=== PATIENT | male | born 1955 | race Caucasian/White ===

== ENCOUNTER 2020-11-26 12:45 | Outpatient (REF) | payer OTHER, SELFPAY ==
[2020-11-26 15:06] LABS: Alanine Aminotransferase 41 U/L (0-40); Albumin Level 4.7 g/dL (3.5-5.0); Alkaline Phosphatase 76 U/L (39-117); Anion Gap 13 (12-20); Aspartate Amino Transferase 31 U/L (5-37); Bilirubin Total 0.8 mg/dL (0.0-1.0); Blood Urea Nitrogen 16 mg/dL (9-16); Calcium 9.3 mg/dL (8.4-10.2); Carbon Dioxide 30 mmol/L (22-29); Chloride 97 mmol/L (96-108); Cholesterol 217 mg/dL; Estimated Glomerular Filt Rate > 60; Glucose Fasting 94 mg/dL (60-99); HDL Cholesterol 50 mg/dL; LDL Cholesterol Calculated 133 mg/dl; Potassium 3.4 mmol/L (3.3-5.1); Sodium 137 mmol/L (135-145); Total Protein 7.9 g/dL (6.5-8.0); Triglycerides 170 mg/dL
== END 2020-11-26 12:46 | disposition home or self-care (01) ==
LOC: HO.HMGCLDS 12:45
PROVIDERS: PCP Internal Medicine; Visit Provider Internal Medicine
DX: E78.9 Disorder of lipoprotein metabolism, unspecified (principal); I10 Essential (primary) hypertension
CPT/HCPCS: 36415; 80048; 80053; 80061

== ENCOUNTER 2021-06-08 09:43 | Outpatient (REF) | payer OTHER, SELFPAY ==
[2021-06-08 11:28] LABS: MANUAL DIFF FLAG NO
[2021-06-08 11:41] LABS: Basophils Percent Auto 0.4 % (0-2); Eosinophils Absolute Auto 0.3 X10*3/uL (0.0-0.4); Eosinophils Percent Auto 3.8 % (0-4); Hemoglobin 15.4 g/dl (14.0-18.0); Imm Gran Abs Auto 0.02 X10*3/uL (0.00-0.03); Imm Gran Pct Auto 0.3 % (0.0-0.4); Lymphocytes Absolute Auto 2.3 X10*3/uL (1.2-4.9); Mean Corpuscular Hemoglobin 31.5 pg (27.0-33.0); Monocytes Absolute Auto 0.7 X10*3/uL (0.1-1.2); Monocytes Percent Auto 8.8 % (2-11); Neutrophils Absolute Auto 4.6 X10*3/uL (2.0-8.3); Neutrophils Percent Auto 57.7 % (45-73); Platelet Count 206 X10*3/uL (160-400); Red Blood Count 4.89 X10*6/uL (4.60-5.80); Red Cell Distribution Width 12.4 % (11.0-16.0); White Blood Count 7.9 X10*3/uL (4.8-10.8)
[2021-06-08 12:23] LABS: Alanine Aminotransferase 45 U/L (0-40); Albumin Level 4.6 g/dL (3.5-5.0); Alkaline Phosphatase 63 U/L (39-117); Anion Gap 14 (12-20); Aspartate Amino Transferase 38 U/L (5-37); Bilirubin Total 0.9 mg/dL (0.0-1.0); Blood Urea Nitrogen 15 mg/dL (9-16); Calcium 9.5 mg/dL (8.4-10.2); Carbon Dioxide 25 mmol/L (22-29); Chloride 103 mmol/L (96-108); Cholesterol 180 mg/dL; Estimated Glomerular Filt Rate > 60; Glucose Fasting 114 mg/dL (60-99); HDL Cholesterol 46 mg/dL; LDL Cholesterol Calculated 107 mg/dl; Potassium 3.4 mmol/L (3.3-5.1); Sodium 139 mmol/L (135-145); Total Protein 7.5 g/dL (6.5-8.0); Triglycerides 138 mg/dL
== END 2021-06-08 09:44 | disposition home or self-care (01) ==
LOC: HO.HMGCLDS 09:43
PROVIDERS: PCP Internal Medicine; Visit Provider Internal Medicine
DX: Z00.01 Encounter for general adult medical examination with abnormal findings (principal); E78.9 Disorder of lipoprotein metabolism, unspecified; I10 Essential (primary) hypertension; Z72.0 Tobacco use
CPT/HCPCS: 36415; 80053; 80061; 85025

== ENCOUNTER 2021-10-25 09:14 | Outpatient (REF) | payer OTHER, SELFPAY ==
[2021-10-25 12:01] LABS: Alanine Aminotransferase 51 U/L (0-40); Albumin Level 4.7 g/dL (3.5-5.0); Alkaline Phosphatase 68 U/L (39-117); Anion Gap 12 (12-20); Aspartate Amino Transferase 35 U/L (5-37); Bilirubin Total 0.7 mg/dL (0.0-1.0); Blood Urea Nitrogen 18 mg/dL (9-16); Calcium 9.8 mg/dL (8.4-10.2); Carbon Dioxide 34 mmol/L (22-29); Chloride 97 mmol/L (96-108); Estimated Glomerular Filt Rate > 60; Glucose Random 145 mg/dL (60-115); Potassium 3.3 mmol/L (3.3-5.1); Sodium 140 mmol/L (135-145); Total Protein 7.8 g/dL (6.5-8.0)
[2021-10-25 12:36] LABS: Estimated Average Glucose 163 mg/dL; Hemoglobin A1c % 7.3 %
== END 2021-10-25 09:15 | disposition home or self-care (01) ==
LOC: HO.HMGCLDS 09:14
PROVIDERS: PCP Internal Medicine; Visit Provider Internal Medicine
DX: I10 Essential (primary) hypertension (principal); E78.9 Disorder of lipoprotein metabolism, unspecified; R79.89 Other specified abnormal findings of blood chemistry; R73.01 Impaired fasting glucose; Z72.0 Tobacco use
CPT/HCPCS: 36415; 80053; 83036

== ENCOUNTER 2022-03-01 09:11 | Outpatient (REF) | payer OTHER, SELFPAY ==
[2022-03-01 11:49] LABS: Estimated Average Glucose 151 mg/dL; Hemoglobin A1c % 6.9 %
[2022-03-01 11:57] LABS: Alanine Aminotransferase 65 U/L (0-40); Albumin Level 4.6 g/dL (3.5-5.0); Alkaline Phosphatase 78 U/L (39-117); Anion Gap 12 (12-20); Aspartate Amino Transferase 48 U/L (5-37); Bilirubin Total 0.5 mg/dL (0.0-1.0); Blood Urea Nitrogen 18 mg/dL (9-16); Calcium 9.2 mg/dL (8.4-10.2); Carbon Dioxide 28 mmol/L (22-29); Chloride 100 mmol/L (96-108); Estimated Glomerular Filt Rate > 60; Glucose Random 183 mg/dL (60-115); Potassium 3.3 mmol/L (3.3-5.1); Sodium 137 mmol/L (135-145); Total Protein 7.4 g/dL (6.5-8.0)
== END 2022-03-01 09:12 | disposition home or self-care (01) ==
LOC: HO.HMGCLDS 09:11
PROVIDERS: PCP Internal Medicine; Visit Provider Internal Medicine
DX: E11.9 Type 2 diabetes mellitus without complications (principal); E78.9 Disorder of lipoprotein metabolism, unspecified; I10 Essential (primary) hypertension; Z72.0 Tobacco use
CPT/HCPCS: 36415; 80053; 83036

== ENCOUNTER 2022-03-02 09:30 | Outpatient (REF) | payer OTHER, SELFPAY ==
[2022-03-02 11:39] LABS: Creatinine Urine 57.67 mg/dL
== END 2022-03-02 09:31 | disposition home or self-care (01) ==
LOC: HO.HMGCLDS 09:30
PROVIDERS: PCP Internal Medicine; Visit Provider Internal Medicine
DX: E11.9 Type 2 diabetes mellitus without complications (principal); E78.9 Disorder of lipoprotein metabolism, unspecified; I10 Essential (primary) hypertension; Z72.0 Tobacco use
CPT/HCPCS: 82043

== ENCOUNTER 2022-10-13 10:36 | Outpatient (REF) | payer OTHER, SELFPAY ==
[2022-10-13 14:10] LABS: Alanine Aminotransferase 49 U/L (0-40); Albumin Level 4.5 g/dL (3.5-5.0); Alkaline Phosphatase 85 U/L (39-117); Anion Gap 15 (12-20); Aspartate Amino Transferase 33 U/L (5-37); Bilirubin Total 0.7 mg/dL (0.0-1.0); Blood Urea Nitrogen 20 mg/dL (9-16); Calcium 9.8 mg/dL (8.4-10.2); Carbon Dioxide 32 mmol/L (22-29); Chloride 97 mmol/L (96-108); Cholesterol 194 mg/dL; Estimated Glomerular Filt Rate > 60; Glucose Fasting 141 mg/dL (60-99); HDL Cholesterol 43 mg/dL; LDL Cholesterol Calculated 121 mg/dl; Potassium 3.5 mmol/L (3.3-5.1); Sodium 140 mmol/L (135-145); Total Protein 7.1 g/dL (6.5-8.0); Triglycerides 152 mg/dL
[2022-10-13 14:38] LABS: Estimated Average Glucose 177 mg/dL; Hemoglobin A1c % 7.8 %
== END 2022-10-13 10:37 | disposition home or self-care (01) ==
LOC: HO.HMGCLDS 10:36
PROVIDERS: PCP Internal Medicine; Visit Provider Internal Medicine
DX: E11.9 Type 2 diabetes mellitus without complications (principal); E66.09 Other obesity due to excess calories; E78.9 Disorder of lipoprotein metabolism, unspecified; I10 Essential (primary) hypertension; R79.89 Other specified abnormal findings of blood chemistry; Z72.0 Tobacco use
CPT/HCPCS: 36415; 80053; 80061; 83036

== ENCOUNTER 2023-04-10 10:26 | Outpatient (REF) | payer OTHER, SELFPAY ==
[2023-04-10 13:26] LABS: MANUAL DIFF FLAG NO
[2023-04-10 13:43] LABS: Basophils Percent Auto 0.4 % (0-2); Eosinophils Absolute Auto 0.4 X10*3/uL (0.0-0.4); Eosinophils Percent Auto 4.3 % (0-4); Hematocrit 43.6 % (42.0-52.0); Hemoglobin 15.3 g/dl (14.0-18.0); Imm Gran Abs Auto 0.04 X10*3/uL (0.00-0.03); Imm Gran Pct Auto 0.4 % (0.0-0.4); Lymphocytes Absolute Auto 2.3 X10*3/uL (1.2-4.9); Lymphocytes Percent Auto 25.3 % (20-40); Mean Corpuscular HGB Conc 35.1 g/dl (31.0-36.0); Mean Corpuscular Hemoglobin 30.8 pg (27.0-33.0); Mean Corpuscular Volume 87.7 fL (80.0-98.0); Mean Platelet Volume 11.1 fL (9.4-12.4); Monocytes Absolute Auto 0.7 X10*3/uL (0.1-1.2); Monocytes Percent Auto 8.1 % (2-11); Neutrophils Absolute Auto 5.6 x10*3/uL (2.0-8.3); Neutrophils Percent Auto 61.5 % (45-73); Platelet Count 191 X10*3/uL (160-400); Red Blood Count 4.97 X10*6/uL (4.60-5.80); Red Cell Distribution Width 12.6 % (11.0-16.0); White Blood Count 9.1 X10*3/uL (4.8-10.8)
[2023-04-10 13:54] LABS: Estimated Average Glucose 148 mg/dL; Hemoglobin A1c % 6.8 %
[2023-04-10 14:20] LABS: Alanine Aminotransferase 37 U/L (0-40); Albumin Level 4.3 g/dL (3.5-5.0); Alkaline Phosphatase 82 U/L (39-117); Anion Gap 16 (12-20); Aspartate Amino Transferase 29 U/L (5-37); Bilirubin Total 0.5 mg/dL (0.0-1.0); Blood Urea Nitrogen 18 mg/dL (9-16); Calcium 9.8 mg/dL (8.4-10.2); Carbon Dioxide 24 mmol/L (22-29); Chloride 103 mmol/L (96-108); Estimated Glomerular Filt Rate > 60; Glucose Random 114 mg/dL (60-115); Potassium 3.1 mmol/L (3.3-5.1); Sodium 140 mmol/L (135-145); Total Protein 7.5 g/dL (6.5-8.0)
== END 2023-04-10 10:27 | disposition home or self-care (01) ==
LOC: HO.HMGCLDS 10:26
PROVIDERS: PCP Internal Medicine; Visit Provider Internal Medicine
DX: E11.9 Type 2 diabetes mellitus without complications (principal); E78.9 Disorder of lipoprotein metabolism, unspecified; I10 Essential (primary) hypertension; R79.89 Other specified abnormal findings of blood chemistry; Z72.0 Tobacco use
CPT/HCPCS: 36415; 80053; 83036; 85025

== ENCOUNTER 2023-04-20 15:06 | Outpatient (AMB) | payer OTHER, SELFPAY ==
[2023-04-20 15:18] VITALS: BP 158/86; PULSE 67; O2SAT 96; BMI 31.3
--- NOTE | 2023-04-20 15:18 | MHC.PC.OV ---
Vital Signs 04/20/23 15:18 Height 5 ft 4 in Weight 182 lb 8 oz BMI 31.3 BP 158/86 H Blood Pressure Location Lt brachial Position Sitting Pulse 67 Pulse Source Pulse Oximeter Pulse Oximetry (%) 96 Oxygen Delivery Method Room Air Intake Visit Reasons: PE Allergies shellfish derived Allergy (Mild, Verified 04/20/23 15:19) Hives Medication List - Last Reconciled 04/20/23 by Navya العلي MD amlodipine 10 mg PO DAILY 90 days aspirin (Adult Low Dose Aspirin) 81 mg PO DAILY atenolol-chlorthalidone 100-25 mg 1 tab PO DAILY 90 days atorvastatin 20 mg PO DAILY cholecalciferol (vitamin D3) PO DAILY glipizide 5 mg PO DAILY 90 days multivitamin (Daily Multi-Vitamin) PO Tobacco use date assessed: 04/20/23 Fall risk assessment: No Falls in past year Last assessed Fall Risk: 04/20/23 Dental Screening Dental Screen Date: 04/20/23 Did you have a dental visit in the last 12 months?: No Did you have a dental problem in the last 6 months where you did not have access to dental care?: No Was dental information given to patient?: No HPI PE HPI Details Patient is 67-year-old gentleman came in today for physical examination Colonoscopy was in [address] Potter patient says that next 1 will be in 2026 Blood pressure is elevated today however it is running around 130s systolic at home patient is monitoring it. He is blood pressure do fluctuate it was 130 systolic in clinic as well last visit. Labs done recently showed hemoglobin A1c of 6.8 Patient is walking 10,000 steps every day His potassium came back at 3.1 he has been eating bananas and will be repeating electrolytes again next week. Follow-up 3 months [facility] Medical History Hypertension, essential Lipid disorder Surgical History History of dental surgery Family History Father Diabetes mellitus Mother HTN (hypertension) Brother No problems noted. Brother No problems noted. Other Substance use disorder Social History Housing: House Alcohol intake: former Patient Tobacco Use Status: Current everyday Tobacco user Cigarette Packs Per Day: 0.25 e-Cigarette/Vaping Use: Never Used Second Hand Smoke Exposure: No service: Yes Current occupational status: retired Cognitive needs: No Hearing needs: No Vision needs: Yes Questionnaire Thrive Questionnaire Date Thrive assessed: 10/25/21 AUDIT C Alcohol Use Questionnaire (AUDIT-C) 1. How often do you have a drink containing alcohol?: Never 3. How often do you have six or more drinks on one occasion?: Never Total Score: 0 Score Reviewed/Action Taken: Yes MARILYNN-7 AMB Questionnaire MARILYNN-7 Date MARILYNN - 7 assessed: 10/25/21 Source: Developed by Drs. Bobby Gutierrez, Alyse Zaragoza, Frank Small and colleagues, with an educational sera from [employer]. Review of Systems Const Denies chills, Denies fever(s) and Denies headache(s) Eyes Denies blurry vision ENT Denies headache(s), Denies nasal discharge, Denies nasal obstruction, Denies odynophagia and Denies sinus pain Card Denies chest pain at rest and Denies chest pain with activity Resp Denies cough and Denies hemoptysis GI Denies diarrhea, Denies odynophagia, Denies vomiting and Denies hematemesis Reports as per HPI Musc Denies abnormal gait Skin/Breast Reports as per HPI Neuro Denies Neuro-related abnormal movements, Denies Abnormal speech present, Denies abnormal gait, Denies headache(s) and Denies Sensory deficit (Neuro) Psych Denies mood swings and Denies paranoia Endo Reports as per HPI Roman/Lymph Reports as per HPI Aller/Immun Reports as per HPI Physical exam (Primary Care) Vital Signs: Last Vital Signs Pulse 67 04/20/23 15:18 BP 158/86 H 04/20/23 15:18 Pulse Ox 96 04/20/23 15:18 Oxygen Delivery Method Room Air 04/20/23 15:18 BMI result Body Mass Index 31.3 Tobacco/Smoking Status: Tobacco use Status Tobacco use date assessed 04/20/23 04/20/23 15:19 Patient Tobacco Use Status Current everyday Tobacco 04/20/23 15:19 e-Cigarette/Vaping Use Never Used 04/20/23 15:19 Thrive Assessment: Date of Thrive Assessment Date Thrive assessed 10/25/21 04/20/23 15:19 Const General: cooperative, comfortable and no acute distress Orientation/consciousness: patient oriented x3 HENMT Head: Yes normocephalic and Yes atraumatic Eyes General: appearance normal, both eyes and all related structures Pupils: Equal, round and reactive pupils present EOM: EOMs intact bilaterally Neck Neck: Yes supple and No lymphadenopathy Thyroid: Thyroid normal Lymphatic: no lymphadenopathy noted Chest Breast/axilla palpation: normal palpation of the breasts Resp Effort & Inspection: normal respiratory effort and able to speak in complete sentences Auscultation: clear to auscultation bilaterally Cardio Heart sounds: S1 normal heart sound present and S2 normal heart sound present GI Palpation (GI): Soft to palpation and nontender Auscultation: normal bowel sounds General: Yes no CVA tenderness Back/Spine/Pelvis Back: no CVA tenderness Skin General skin exam: elasticity normal and turgor normal Neuro General: patient oriented x3 and gait normal Cranial nerves: Yes Equal, round and reactive pupils present Speech: No Abnormal speech present Sensory Exam: No Sensory deficit (Neuro) Coordination: tandem gait normal and Romberg test negative Extrem General: Yes normal exam except as noted and No edema Assessment and Plan Assessment & Plan (1) Encounter for general adult medical examination with abnormal findings: Code(s): Z00.01 - Encounter for general adult medical examination with abnormal findings (2) Hypokalemia: Code(s): E87.6 - Hypokalemia (3) Lipid disorder: Code(s): E78.9 - Disorder of lipoprotein metabolism, unspecified (4) Hypertension, essential: Code(s): I10 - Essential (primary) hypertension (5) Tobacco abuse: Code(s): Z72.0 - Tobacco use Plan Patient is 67-year-old gentleman came in today for physical examination Colonoscopy was [place] [address] Potter patient says that next 1 will be in 2026 Blood pressure is elevated today however it is running around 130s systolic at home patient is monitoring it. He is blood pressure do fluctuate it was 130 systolic in clinic as well last visit. Labs done recently showed hemoglobin A1c of 6.8 Patient is walking 10,000 steps every day His potassium came back at 3.1 he has been eating bananas and will be repeating electrolytes again next week. Continue to smoke 10 cigarettes daily having difficulty quitting Follow-up 3 months Orders: Orders Electrolytes Today E87.6 - Hypokalemia Coding Level of Care Code Est Pt Prev Care >65y(10834) Diagnoses Encounter for general adult medical examination with abnormal findings Z00.01 Hypokalemia E87.6 Lipid disorder E78.9 Hypertension, essential I10 Tobacco abuse Z72.0
== END 2023-04-20 16:16 | disposition home or self-care (01) ==
PROVIDERS: PCP Internal Medicine; Visit Provider Internal Medicine
DX: Z00.01 Encounter for general adult medical examination with abnormal findings (principal); E87.6 Hypokalemia; E78.9 Disorder of lipoprotein metabolism, unspecified; I10 Essential (primary) hypertension; Z72.0 Tobacco use
CPT/HCPCS: 99397

== ENCOUNTER 2023-05-04 13:52 | Outpatient (REF) | payer OTHER, SELFPAY ==
[2023-05-04 16:11] LABS: Anion Gap 14 (12-20); Carbon Dioxide 28 mmol/L (22-29); Chloride 102 mmol/L (96-108); Potassium 3.1 mmol/L (3.3-5.1); Sodium 141 mmol/L (135-145)
== END 2023-05-04 13:53 | disposition home or self-care (01) ==
LOC: HO.HMGCLDS 13:52
PROVIDERS: PCP Internal Medicine; Visit Provider Internal Medicine
DX: E87.6 Hypokalemia (principal)
CPT/HCPCS: 36415; 80051

== ENCOUNTER 2023-07-20 09:33 | Outpatient (AMB) | payer OTHER, SELFPAY ==
[2023-07-20 09:39] VITALS: BP 160/84; PULSE 60; O2SAT 94; BMI 32.1
--- NOTE | 2023-07-20 09:39 | MHC.PC.OV ---
Vital Signs 07/20/23 09:39 Height 5 ft 4 in Weight 187 lb 2 oz BMI 32.1 BP 160/84 H Blood Pressure Location Rt brachial Position Sitting Pulse 60 Pulse Source Pulse Oximeter Pulse Oximetry (%) 94 Oxygen Delivery Method Room Air Intake Visit Reasons: 3 Month follow up Allergies shellfish derived Allergy (Mild, Verified 07/20/23 09:40) Hives Medication List - Last Reconciled 07/20/23 by Navya العلي MD amlodipine 10 mg PO DAILY 90 days aspirin (Adult Low Dose Aspirin) 81 mg PO DAILY atenolol-chlorthalidone 100-25 mg 1 tab PO DAILY 90 days atorvastatin 20 mg PO DAILY cholecalciferol (vitamin D3) PO DAILY glipizide 5 mg PO DAILY 90 days multivitamin (Daily Multi-Vitamin) PO Tobacco use date assessed: 07/20/23 Fall risk assessment: No Falls in past year Last assessed Fall Risk: 07/20/23 Dental Screening Dental Screen Date: 07/20/23 Did you have a dental visit in the last 12 months?: No Did you have a dental problem in the last 6 months where you did not have access to dental care?: No Was dental information given to patient?: No HPI 3 Month follow up HPI Details Patient is 67-year-old male came in today for his regular follow-up appointment.? Patient had labs done in April his potassium continued to be low at 3.1 He will have it repeated again Blood pressure still elevated patient is taking atenolol 100-25 chlorthalidone. And amlodipine 10 mg Blood pressure is stable he got a new blood pressure monitor which is accurate , patient says that his blood pressure runs around 130s at home it is only when he comes here it is elevated Diabetes mellitus : Patient is on glipizide 5 mg his hemoglobin A1c is stable in was 6.8 in April of this year Tobacco abuse: Still smoking half a pack per day, patient says that he cuts down and then start smoking again Help offered, however patient would like to do it himself COPD: Patient knows that he has COPD is wheezing on examination bilateral basal posteriorly But does not want to use any inhaler or does not want to do any pulmonary function test Lipid disorder:? Continue atorvastatin 20 mg his lipids are controlled.? BMI is elevated need to lose weight. Liver enzymes are stable Follow-up 3 months PFSH Medical History Lipid disorder Hypertension, essential Surgical History History of dental surgery Family History Father Diabetes mellitus Mother HTN (hypertension) Brother No problems noted. Brother No problems noted. Other Substance use disorder Social History Housing: House Alcohol intake: former Patient Tobacco Use Status: Current everyday Tobacco user Cigarette Packs Per Day: 0.25 e-Cigarette/Vaping Use: Never Used Second Hand Smoke Exposure: No service: Yes Current occupational status: retired Cognitive needs: No Hearing needs: No Vision needs: Yes Questionnaire Thrive Questionnaire Date Thrive assessed: 10/25/21 MARILYNN-7 AMB Questionnaire MARILYNN-7 Date MARILYNN - 7 assessed: 10/25/21 Source: Developed by Drs. Bobby Gutierrez, Alyse Zaragoza, Frank Small and colleagues, with an educational sera from [employer]. Review of Systems Const Denies chills and Denies fever(s) ENT Denies epistaxis and Denies nasal discharge Card Denies chest pain Resp Denies chest congestion and Denies hemoptysis GI Denies diarrhea and Denies nausea Skin/Breast Denies rash Neuro Reports no additional complaints Psych Reports no additional complaints Endo Reports no additional complaints Physical exam (Primary Care) Vital Signs: Last Vital Signs Pulse 60 07/20/23 09:39 BP 160/84 H 07/20/23 09:39 Pulse Ox 94 07/20/23 09:39 Oxygen Delivery Method Room Air 07/20/23 09:39 BMI result Body Mass Index 32.1 Tobacco/Smoking Status: Tobacco use Status Tobacco use date assessed 07/20/23 07/20/23 09:42 Patient Tobacco Use Status Current everyday Tobacco 07/20/23 09:42 e-Cigarette/Vaping Use Never Used 07/20/23 09:42 Are you ready to quit: Yes Tobacco cessation counseling provided: Yes Relapse Prevention: discussed the importance of a supportive environment CPT code: 25849 - 4-10 Minutes Thrive Assessment: Date of Thrive Assessment Date Thrive assessed 10/25/21 07/20/23 09:42 Const General: cooperative, comfortable and no acute distress Orientation/consciousness: patient oriented x3 HENMT Head: Yes normocephalic Eyes General: appearance normal, both eyes and all related structures Neck Neck: Yes supple Resp Other: Wheezing bilateral basal able to speak in full sentences Effort & Inspection: normal respiratory effort, no cough and no stridor Cardio Rhythm: regular rhythm Heart sounds: S1 normal heart sound present and S2 normal heart sound present Skin General skin exam: turgor normal Neuro General: patient oriented x3, tone normal and moves all extremities Extrem Right lower extremity: no edema Left lower extremity: no edema Assessment and Plan Assessment & Plan (1) Non-insulin dependent type 2 diabetes mellitus: Code(s): E11.9 - Type 2 diabetes mellitus without complications (2) COPD (chronic obstructive pulmonary disease): Code(s): J44.9 - Chronic obstructive pulmonary disease, unspecified Qualifiers: COPD type: emphysema Emphysema type: panlobular Qualified Code(s): J43.1 - Panlobular emphysema (3) Obesity due to excess calories: Code(s): E66.09 - Other obesity due to excess calories Qualifiers: Body mass index: BMI 32.0-32.9 Obesity classification: adult class 1 (BMI 30 - 34.9) Serious obesity comorbidity presence: with serious comorbidity Qualified Code(s): E66.09 - Other obesity due to excess calories; Z68.32 - Body mass index [BMI] 32.0-32.9, adult (4) Hypertension, essential: Code(s): I10 - Essential (primary) hypertension (5) Hypokalemia: Code(s): E87.6 - Hypokalemia (6) Lipid disorder: Code(s): E78.9 - Disorder of lipoprotein metabolism, unspecified (7) Tobacco abuse: Code(s): Z72.0 - Tobacco use (8) Wheezing: Code(s): R06.2 - Wheezing Plan Patient is 67-year-old male came in today for his regular follow-up appointment.? Patient had labs done in April his potassium continued to be low at 3.1 He will have it repeated again Blood pressure still elevated patient is taking atenolol 100-25 chlorthalidone. And amlodipine 10 mg Blood pressure is stable he got a new blood pressure monitor which is accurate , patient says that his blood pressure runs around 130s at home it is only when he comes here it is elevated Diabetes mellitus : Patient is on glipizide 5 mg his hemoglobin A1c is stable in was 6.8 in April of this year Tobacco abuse: Still smoking half a pack per day, patient says that he cuts down and then start smoking again Help offered, however patient would like to do it himself COPD: Patient knows that he has COPD is wheezing on examination bilateral basal posteriorly But does not want to use any inhaler or does not want to do any pulmonary function test Lipid disorder:? Continue atorvastatin 20 mg his lipids are controlled.? BMI is elevated need to lose weight. Liver enzymes are stable Follow-up 3 months Orders: Orders Basic Metabolic Panel Today E11.9 - Type 2 diabetes mellitus without complications, E78.9 - Disorder of lipoprotein metabolism, unspecified, E87.6 - Hypokalemia, I10 - Essential (primary) hypertension, Z72.0 - Tobacco use Coding Level of Care Code Est Pt Level 4 (49023) Diagnoses Non-insulin dependent type 2 diabetes mellitus E11.9 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 type: emphysema Emphysema type: panlobular Class 1 obesity due to excess calories with serious comorbidity and body mass index (BMI) of 32.0 to 32.9 in adult E66.09; Z68.32 Body mass index: BMI 32.0-32.9 Obesity classification: adult class 1 (BMI 30 - 34.9) Serious obesity comorbidity presence: with serious comorbidity Hypertension, essential I10 Hypokalemia E87.6 Lipid disorder E78.9 Tobacco abuse Z72.0 Wheezing R06.2 Additional Codes Vital Signs *Quality* - CPT code: 56771 - 4-10 Minutes ([id number])
== END 2023-07-20 10:07 | disposition home or self-care (01) ==
PROVIDERS: PCP Internal Medicine; Visit Provider Internal Medicine
DX: E11.9 Type 2 diabetes mellitus without complications (principal); J43.1 Panlobular emphysema; E66.09 Other obesity due to excess calories; Z68.32 Body mass index [BMI] 32.0-32.9, adult; I10 Essential (primary) hypertension; E87.6 Hypokalemia; E78.9 Disorder of lipoprotein metabolism, unspecified; Z72.0 Tobacco use; R06.2 Wheezing
CPT/HCPCS: 99214

== ENCOUNTER 2023-07-20 10:01 | Outpatient (REF) | payer OTHER, SELFPAY ==
[2023-07-20 13:59] LABS: Anion Gap 11 (12-20); Blood Urea Nitrogen 19 mg/dL (9-16); Calcium 9.6 mg/dL (8.4-10.2); Carbon Dioxide 30 mmol/L (22-29); Chloride 98 mmol/L (96-108); Estimated Glomerular Filt Rate > 60; Glucose Random 364 mg/dL (60-115); Potassium 3.3 mmol/L (3.3-5.1); Sodium 136 mmol/L (135-145)
== END 2023-07-20 10:02 | disposition home or self-care (01) ==
LOC: HO.HMGCLDS 10:01
PROVIDERS: PCP Internal Medicine; Visit Provider Internal Medicine
DX: E87.6 Hypokalemia (principal); E11.9 Type 2 diabetes mellitus without complications; I10 Essential (primary) hypertension; E78.9 Disorder of lipoprotein metabolism, unspecified; Z72.0 Tobacco use
CPT/HCPCS: 36415; 80048

== ENCOUNTER 2023-07-25 12:17 | Outpatient (AMB) | payer OTHER, SELFPAY ==
--- NOTE | 2023-07-25 12:22 | MHC.PC.OV ---
Vital Signs 07/25/23 12:25 Height 5 ft 4 in Weight 185 lb BMI 31.8 BP 150/78 H Blood Pressure Location Rt brachial Position Sitting Pulse 61 Pulse Source Pulse Oximeter Pulse Oximetry (%) 97 Intake Visit Reasons: Followup diabetes Allergies shellfish derived Allergy (Mild, Verified 07/25/23 12:23) Hives Medication List - Last Reconciled 07/25/23 by Navya العلي MD amlodipine 10 mg PO DAILY 90 days aspirin (Adult Low Dose Aspirin) 81 mg PO DAILY atenolol-chlorthalidone 100-25 mg 1 tab PO DAILY 90 days atorvastatin 20 mg PO DAILY cholecalciferol (vitamin D3) PO DAILY glipizide 5 mg PO DAILY 90 days multivitamin (Daily Multi-Vitamin) PO Tobacco use date assessed: 07/25/23 Fall risk assessment: No Falls in past year Last assessed Fall Risk: 07/25/23 Dental Screening Dental Screen Date: 07/25/23 Did you have a dental visit in the last 12 months?: No Was dental information given to patient?: Patient declined HPI Followup diabetes HPI Details Patient is 67-year-old gentleman came in today to be evaluated for elevated blood sugar He had labs done recently and his random blood sugar was 364 Patient says that he had a big breakfast that day with lot of jam and often along with suite cereal Patient also tells me that he knows a lot about diabetes as he took care of his mother with diabetes And he will avoid such for next time Currently patient is taking glipizide 5 mg once a day His hemoglobin A1c 7.5 today He does complain body she would year, explained to him that it is because of uncontrolled blood sugar. He is to make sure that he is hydrating well. [facility] Medical History Lipid disorder Hypertension, essential Surgical History History of dental surgery Family History Father Diabetes mellitus Mother HTN (hypertension) Brother No problems noted. Brother No problems noted. Other Substance use disorder Social History Housing: House Alcohol intake: former Patient Tobacco Use Status: Current everyday Tobacco user Cigarette Packs Per Day: 0.25 e-Cigarette/Vaping Use: Never Used Second Hand Smoke Exposure: No service: Yes Current occupational status: retired Cognitive needs: No Hearing needs: No Vision needs: Yes Questionnaire PHQ-9 Over the last 2 weeks, how often have you been bothered by any of the following problems? 1. Little interest or pleasure in doing things: not at all 2. Feeling down, depressed, or hopeless: not at all 3. Trouble falling or staying asleep, or sleeping too much: not at all 4. Feeling tired or having little energy: not at all 5. Poor appetite or overeating: not at all 6. Feeling bad about yourself - or that you are a failure or have let yourself or your family down: not at all 7. Trouble concentrating on things, such as reading the newspaper or watching television: not at all 8. Moving or speaking so slowly that other people could have noticed. Or the opposite - being so fidgety or restless that you have been moving around a lot more than usual: not at all 9. Thoughts that you would be better off or of hurting yourself in some way: not at all Total score: 0 Depression Screening Interpretation: Negative Depression Screening Done: Yes 77460 - PHQ-9 Billing: Yes Source: Developed by Drs. Bobby Gutierrez, Alyse Zaragoza, Frank Small and colleagues, with an educational sera from [employer]. Thrive Questionnaire Date Thrive assessed: 07/25/23 I am a: Patient What is your living situation today?: I have a steady place to live Within the past 12 months, did the food you bought not last and you didn't have the money to get more?: Never true Within the past 12 months, did you worry whether your food would run out before you got money to buy more?: Never true Do you have trouble paying for medicines?: No Do you have trouble getting transportation to medical appointments?: No Do you have trouble paying your heating and electricity bill?: No Do you have trouble taking care of your child, family member or friend?: No Do you have trouble with day-to-day activities such as bathing, preparing meals, shopping, managing finances, etc.?: No Are you currently unemployed and looking for a job?: No Are you interested in more education?: No Please select the resources that you would like help with: None Currently or been in a relationship where the following occur: no concerns reported AUDIT C Alcohol Use Questionnaire (AUDIT-C) 1. How often do you have a drink containing alcohol?: Never Total Score: 0 MARILYNN-7 AMB Questionnaire MARILYNN-7 Date MARILYNN - 7 assessed: 07/25/23 Feeling nervous, anxious, or on edge: 0 = Not at all Not being able to stop or control worryin = Not at all Worrying too much about different things: 0 = Not at all Trouble relaxin = Not at all Being so restless that it is hard to sit still: 0 = Not at all Becoming easily annoyed or irritable: 0 = Not at all Feeling afraid as if something awful might happen: 0 = Not at all Total MARILYNN-7 score (0-4 normal; 5-9 mild; 10-14 moderate; 15-21 severe): 0 Source: Developed by Drs. Bobby Gutierrez, Alyse Zaragoza, Frank Small and colleagues, with an educational sera from [employer]. MARILYNN-7 Assessment Billing MARILYNN-7 Assessment Tool: MARILYNN-7 Assessment 20552 Review of Systems Const Denies chills and Denies fever(s) ENT Denies epistaxis and Denies nasal discharge Card Denies chest pain Resp Denies chest congestion, Denies cough and Denies hemoptysis GI Denies diarrhea and Denies nausea Skin/Breast Denies rash Neuro Reports no additional complaints Psych Reports no additional complaints Endo Reports no additional complaints Physical exam (Primary Care) Vital Signs: Last Vital Signs Pulse 61 07/25/23 12:25 BP 150/78 H 07/25/23 12:25 Pulse Ox 97 07/25/23 12:25 BMI result Body Mass Index 31.8 Tobacco/Smoking Status: Tobacco use Status Tobacco use date assessed 07/25/23 07/25/23 12:26 Patient Tobacco Use Status Current everyday Tobacco 07/25/23 12:26 e-Cigarette/Vaping Use Never Used 07/25/23 12:26 PHQ-9: PHQ-9 Score PHQ-9: Total score 0 07/25/23 12:32 Depression Screening Interpretation: Negative Thrive Assessment: Date of Thrive Assessment Date Thrive assessed 07/25/23 07/25/23 12:29 Currently or been in a relationship where the following occur: no concerns reported Const General: cooperative, comfortable and no acute distress Orientation/consciousness: patient oriented x3 HENMT Head: Yes normocephalic Eyes General: appearance normal, both eyes and all related structures Neck Neck: Yes supple Resp Effort & Inspection: normal respiratory effort, no cough and no stridor Cardio Rhythm: regular rhythm Heart sounds: S1 normal heart sound present and S2 normal heart sound present Skin General skin exam: turgor normal Neuro General: patient oriented x3, tone normal and moves all extremities Extrem Right lower extremity: no edema Left lower extremity: no edema Results AMB Hemoglobin A1c AMB Hemoglobin A1c 7.5 % Last Edit by Chris Stubbs CMA on 07/25/23 12:52 Results Reviewed Results Reviewed: Laboratory Last Values Hgb A1c (Clinic) 7.5 % (4.0-6.0) H 07/25/23 12:51 Assessment and Plan Assessment & Plan (1) Type 2 diabetes mellitus with obesity: Code(s): E11.69 - Type 2 diabetes mellitus with other specified complication; E66.9 - Obesity, unspecified (2) Hypertension, essential: Code(s): I10 - Essential (primary) hypertension (3) Lipid disorder: Code(s): E78.9 - Disorder of lipoprotein metabolism, unspecified (4) LFT elevation: Code(s): R79.89 - Other specified abnormal findings of blood chemistry (5) COPD (chronic obstructive pulmonary disease): Code(s): J44.9 - Chronic obstructive pulmonary disease, unspecified Qualifiers: COPD type: emphysema Emphysema type: panlobular Qualified Code(s): J43.1 - Panlobular emphysema Plan Patient is 67-year-old gentleman came in today to be evaluated for elevated blood sugar He had labs done recently and his random blood sugar was 364 Patient says that he had a big breakfast that day with lot of jam and often along with suite cereal Patient also tells me that he knows a lot about diabetes as he took care of his mother with diabetes And he will avoid such for next time Currently patient is taking glipizide 5 mg once a day His hemoglobin A1c 7.5 today He does complain body she would year, explained to him that it is because of uncontrolled blood sugar. He is to make sure that he is hydrating well. Orders: Orders Hemoglobin A1c 3 Months E11.9 - Type 2 diabetes mellitus without complications, E78.9 - Disorder of lipoprotein metabolism, unspecified, I10 - Essential (primary) hypertension, J44.9 - Chronic obstructive pulmonary disease, unspecified, R79.89 - Other specified abnormal findings of blood chemistry Comprehensive [place]. Panel Fast 3 Months E11.9 - Type 2 diabetes mellitus without complications, E78.9 - Disorder of lipoprotein metabolism, unspecified, I10 - Essential (primary) hypertension, J44.9 - Chronic obstructive pulmonary disease, unspecified, R79.89 - Other specified abnormal findings of blood chemistry AMB Hemoglobin A1c Today E11.69 - Type 2 diabetes mellitus with other specified complication, E66.9 - Obesity, unspecified, Z13.9 - Encounter for screening, unspecified Microalbumin, Random (w Creat) 3 Months E11.9 - Type 2 diabetes mellitus without complications, E78.9 - Disorder of lipoprotein metabolism, unspecified, I10 - Essential (primary) hypertension, J44.9 - Chronic obstructive pulmonary disease, unspecified, R79.89 - Other specified abnormal findings of blood chemistry Lipid Panel 3 Months E11.9 - Type 2 diabetes mellitus without complications, E78.9 - Disorder of lipoprotein metabolism, unspecified, I10 - Essential (primary) hypertension, J44.9 - Chronic obstructive pulmonary disease, unspecified, R79.89 - Other specified abnormal findings of blood chemistry Coding Level of Care Code Est Pt Level 3 (37110) Diagnoses 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; E66.9 Hypertension, essential I10 Lipid disorder E78.9 LFT elevation R79.89 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 type: emphysema Emphysema type: panlobular Additional Codes MARILYNN-7 Assessment Billing - MARILYNN-7 Assessment Tool: MARILYNN-7 Assessment [id number] ([id number])
[2023-07-25 12:25] VITALS: BP 150/78; PULSE 61; O2SAT 97; BMI 31.8
== END 2023-07-25 14:35 | disposition home or self-care (01) ==
PROVIDERS: PCP Internal Medicine; Visit Provider Internal Medicine
DX: E11.69 Type 2 diabetes mellitus with other specified complication (principal); J43.1 Panlobular emphysema; E66.9 Obesity, unspecified; Z68.31 Body mass index [BMI] 31.0-31.9, adult; I10 Essential (primary) hypertension; E78.9 Disorder of lipoprotein metabolism, unspecified; R79.89 Other specified abnormal findings of blood chemistry
CPT/HCPCS: 83036; 99213

== ENCOUNTER 2023-11-27 12:38 | Outpatient (AMB) | payer OTHER, SELFPAY ==
[2023-11-27 12:41] VITALS: BP 150/78; PULSE 62; O2SAT 96; BMI 31.5
--- NOTE | 2023-11-27 12:41 | MHC.PC.OV ---
Vital Signs 11/27/23 12:41 Height 5 ft 4 in Weight 183 lb 6 oz BMI 31.5 BP 150/78 H Blood Pressure Location Rt brachial Position Sitting Pulse 62 Pulse Source Pulse Oximeter Pulse Oximetry (%) 96 Oxygen Delivery Method Room Air Intake Visit Reasons: 9 month follow up Allergies shellfish derived Allergy (Mild, Verified 11/27/23 12:43) Hives Medication List - Last Reconciled 11/27/23 by Navya العلي MD amlodipine 10 mg PO DAILY 90 days aspirin (Adult Low Dose Aspirin) 81 mg PO DAILY atenolol-chlorthalidone 100-25 mg 1 tab PO DAILY 90 days atorvastatin 20 mg PO DAILY cholecalciferol (vitamin D3) PO DAILY glipizide 5 mg PO DAILY 90 days multivitamin (Daily Multi-Vitamin) PO Tobacco use date assessed: 11/27/23 Fall risk assessment: No Falls in past year Last assessed Fall Risk: 11/27/23 Dental Screening Dental Screen Date: 11/27/23 Did you have a dental visit in the last 12 months?: No Did you have a dental problem in the last 6 months where you did not have access to dental care?: No Was dental information given to patient?: Patient has dentist HPI 9 month follow up HPI Details Patient is 67-year-old male came in today for his regular follow-up appointment.? Labs were needed before this visit but patient forgot, he says that he will do them tomorrow Blood pressure still elevated patient is taking atenolol 100-25 chlorthalidone. And amlodipine 10 mg At home it is running fine, patient will bring his blood pressure monitor next visit Diabetes mellitus : Patient is on glipizide 5 mg due for hemoglobin A1c Tobacco abuse: Still smoking 1 pack per day trying to quit COPD: Patient knows that he has COPD is wheezing on examination bilateral basal posteriorly does not want to do any pulmonary function test, today he agree to use rescue script sent Lipid disorder:? Continue atorvastatin 20 mg his lipids are controlled.? BMI is elevated need to lose weight. Liver enzymes are stable Has appointment in April, labs to be done fasting before visit [facility] Medical History Lipid disorder Hypertension, essential Surgical History History of dental surgery Family History Father Diabetes mellitus Mother HTN (hypertension) Brother No problems noted. Brother No problems noted. Other Substance use disorder Social History Housing: House Alcohol intake: former Patient Tobacco Use Status: Current everyday Tobacco user Cigarette Packs Per Day: 0.5 Cigarettes Per Day: 10 e-Cigarette/Vaping Use: Never Used Second Hand Smoke Exposure: No service: Yes Current occupational status: retired Cognitive needs: No Hearing needs: No Vision needs: Yes Questionnaire PHQ-9 Over the last 2 weeks, how often have you been bothered by any of the following problems? 1. Little interest or pleasure in doing things: not at all 2. Feeling down, depressed, or hopeless: not at all 3. Trouble falling or staying asleep, or sleeping too much: not at all 4. Feeling tired or having little energy: not at all 5. Poor appetite or overeating: not at all 6. Feeling bad about yourself - or that you are a failure or have let yourself or your family down: not at all 7. Trouble concentrating on things, such as reading the newspaper or watching television: not at all 8. Moving or speaking so slowly that other people could have noticed. Or the opposite - being so fidgety or restless that you have been moving around a lot more than usual: not at all 9. Thoughts that you would be better off or of hurting yourself in some way: not at all Total score: 0 Depression Screening Interpretation: Negative Depression Screening Done: Yes 05286 - PHQ-9 Billing: Yes Source: Developed by Drs. Bobby Gutierrez, Alyse Zaragoza, Frank Small and colleagues, with an educational sera from [employer]. Thrive Questionnaire Date Thrive assessed: 11/27/23 I am a: Patient What is your living situation today?: I have a steady place to live Within the past 12 months, did the food you bought not last and you didn't have the money to get more?: Never true Within the past 12 months, did you worry whether your food would run out before you got money to buy more?: Never true Do you have trouble paying for medicines?: No Do you have trouble getting transportation to medical appointments?: No Do you have trouble paying your heating and electricity bill?: No Do you have trouble taking care of your child, family member or friend?: No Do you have trouble with day-to-day activities such as bathing, preparing meals, shopping, managing finances, etc.?: No Are you currently unemployed and looking for a job?: No Are you interested in more education?: No Please select the resources that you would like help with: None Currently or been in a relationship where the following occur: no concerns reported THRIVE Score: 0 AUDIT C Alcohol Use Questionnaire (AUDIT-C) 1. How often do you have a drink containing alcohol?: Never Total Score: 0 MARILYNN-7 AMB Questionnaire MARILYNN-7 Date MARILYNN - 7 assessed: 11/27/23 Feeling nervous, anxious, or on edge: 0 = Not at all Not being able to stop or control worryin = Not at all Worrying too much about different things: 0 = Not at all Trouble relaxin = Not at all Being so restless that it is hard to sit still: 0 = Not at all Becoming easily annoyed or irritable: 0 = Not at all Feeling afraid as if something awful might happen: 0 = Not at all Total MARILYNN-7 score (0-4 normal; 5-9 mild; 10-14 moderate; 15-21 severe): 0 Source: Developed by Drs. Bobby Gutierrez, Alyse Zaragoza, Frank Small and colleagues, with an educational sera from [employer]. MARILYNN-7 Assessment Billing MARILYNN-7 Assessment Tool: MARILYNN-7 Assessment 52291 Review of Systems Const Denies chills and Denies fever(s) ENT Denies epistaxis and Denies nasal discharge Card Denies chest pain Resp Denies chest congestion, Denies cough and Denies hemoptysis GI Denies diarrhea and Denies nausea Skin/Breast Denies rash Neuro Reports no additional complaints Psych Reports no additional complaints Endo Reports no additional complaints Physical exam (Primary Care) Vital Signs: Last Vital Signs Pulse 62 11/27/23 12:41 BP 150/78 H 11/27/23 12:41 Pulse Ox 96 11/27/23 12:41 Oxygen Delivery Method Room Air 11/27/23 12:41 BMI result Body Mass Index 31.5 Tobacco/Smoking Status: Tobacco use Status Tobacco use date assessed 11/27/23 11/27/23 12:46 Patient Tobacco Use Status Current everyday Tobacco 11/27/23 12:46 e-Cigarette/Vaping Use Never Used 11/27/23 12:46 PHQ-9: PHQ-9 Score PHQ-9: Total score 0 11/27/23 14:16 Depression Screening Interpretation: Negative Thrive Assessment: Date of Thrive Assessment Date Thrive assessed 11/27/23 11/27/23 13:13 Currently or been in a relationship where the following occur: no concerns reported Const General: cooperative, comfortable and no acute distress Orientation/consciousness: patient oriented x3 HENMT Head: Yes normocephalic Eyes General: appearance normal, both eyes and all related structures Neck Neck: Yes supple Resp Other: Wheezing bilateral basal with deep breaths Effort & Inspection: normal respiratory effort, no cough and no stridor Cardio Rhythm: regular rhythm Heart sounds: S1 normal heart sound present and S2 normal heart sound present Skin General skin exam: turgor normal Neuro General: patient oriented x3, tone normal and moves all extremities Extrem Right lower extremity: no edema Left lower extremity: no edema Assessment and Plan Assessment & Plan (1) Non-insulin dependent type 2 diabetes mellitus: Code(s): E11.9 - Type 2 diabetes mellitus without complications (2) COPD (chronic obstructive pulmonary disease): Code(s): J44.9 - Chronic obstructive pulmonary disease, unspecified Qualifiers: COPD type: emphysema Emphysema type: panlobular Qualified Code(s): J43.1 - Panlobular emphysema (3) Hypertension, essential: Code(s): I10 - Essential (primary) hypertension (4) Lipid disorder: Code(s): E78.9 - Disorder of lipoprotein metabolism, unspecified (5) Tobacco abuse: Code(s): Z72.0 - Tobacco use (6) LFT elevation: Code(s): R79.89 - Other specified abnormal findings of blood chemistry (7) Obesity due to excess calories: Code(s): E66.09 - Other obesity due to excess calories Qualifiers: Body mass index: BMI 32.0-32.9 Obesity classification: adult class 1 (BMI 30 - 34.9) Serious obesity comorbidity presence: with serious comorbidity Qualified Code(s): E66.09 - Other obesity due to excess calories; Z68.32 - Body mass index [BMI] 32.0-32.9, adult (8) Wheezing: Code(s): R06.2 - Wheezing Plan Patient is 67-year-old male came in today for his regular follow-up appointment.? Labs were needed before this visit but patient forgot, he says that he will do them tomorrow Blood pressure still elevated patient is taking atenolol 100-25 chlorthalidone. And amlodipine 10 mg At home it is running fine, patient will bring his blood pressure monitor next visit Diabetes mellitus : Patient is on glipizide 5 mg due for hemoglobin A1c Tobacco abuse: Still smoking 1 pack per day trying to quit COPD: Patient knows that he has COPD is wheezing on examination bilateral basal posteriorly does not want to do any pulmonary function test, today he agree to use rescue script sent Lipid disorder:? Continue atorvastatin 20 mg his lipids are controlled.? BMI is elevated need to lose weight. Liver enzymes are stable Has appointment in April, labs to be done fasting before visit Orders: Orders Complete Blood Count Auto Diff 3 Months E11.9 - Type 2 diabetes mellitus without complications, E66.09 - Other obesity due to excess calories, E78.9 - Disorder of lipoprotein metabolism, unspecified, I10 - Essential (primary) hypertension, J44.9 - Chronic obstructive pulmonary disease, unspecified, R79.89 - Other specified abnormal findings of blood chemistry, Z72.0 - Tobacco use Comprehensive [place]. Panel Fast 3 Months E11.9 - Type 2 diabetes mellitus without complications, E66.09 - Other obesity due to excess calories, E78.9 - Disorder of lipoprotein metabolism, unspecified, I10 - Essential (primary) hypertension, J44.9 - Chronic obstructive pulmonary disease, unspecified, R79.89 - Other specified abnormal findings of blood chemistry, Z72.0 - Tobacco use Lipid Panel 3 Months E11.9 - Type 2 diabetes mellitus without complications, E66.09 - Other obesity due to excess calories, E78.9 - Disorder of lipoprotein metabolism, unspecified, I10 - Essential (primary) hypertension, J44.9 - Chronic obstructive pulmonary disease, unspecified, R79.89 - Other specified abnormal findings of blood chemistry, Z72.0 - Tobacco use Hemoglobin A1c 3 Months E11.9 - Type 2 diabetes mellitus without complications, E66.09 - Other obesity due to excess calories, E78.9 - Disorder of lipoprotein metabolism, unspecified, I10 - Essential (primary) hypertension, J44.9 - Chronic obstructive pulmonary disease, unspecified, R79.89 - Other specified abnormal findings of blood chemistry, Z72.0 - Tobacco use Medications: New albuterol sulfate 90 mcg/actuation (Ventolin HFA) 1 inh inhalation QID PRN 6.7 grams 2RF shortness of breath or wheezing 30 days Coding Level of Care Code Est Pt Level 4 (39001) Diagnoses Non-insulin dependent type 2 diabetes mellitus E11.9 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 type: emphysema Emphysema type: panlobular Hypertension, essential I10 Lipid disorder E78.9 Tobacco abuse Z72.0 LFT elevation R79.89 Class 1 obesity due to excess calories with serious comorbidity and body mass index (BMI) of 32.0 to 32.9 in adult E66.09; Z68.32 Body mass index: BMI 32.0-32.9 Obesity classification: adult class 1 (BMI 30 - 34.9) Serious obesity comorbidity presence: with serious comorbidity Wheezing R06.2 Additional Codes MARILYNN-7 Assessment Billing - MARILYNN-7 Assessment Tool: MARILYNN-7 Assessment [id number] ([id number])
== END 2023-11-27 14:15 | disposition home or self-care (01) ==
PROVIDERS: PCP Internal Medicine; Visit Provider Internal Medicine
DX: E11.9 Type 2 diabetes mellitus without complications (principal); J43.1 Panlobular emphysema; I10 Essential (primary) hypertension; E78.9 Disorder of lipoprotein metabolism, unspecified; Z72.0 Tobacco use; R79.89 Other specified abnormal findings of blood chemistry; E66.09 Other obesity due to excess calories; Z68.32 Body mass index [BMI] 32.0-32.9, adult; R06.2 Wheezing
CPT/HCPCS: 99214

== ENCOUNTER 2023-11-28 09:18 | Outpatient (REF) | payer OTHER, SELFPAY ==
[2023-11-28 11:52] LABS: Estimated Average Glucose 169 mg/dL; Hemoglobin A1c % 7.5 % (<6.0)
[2023-11-28 12:00] LABS: Alanine Aminotransferase 51 U/L (0-40); Albumin Level 4.2 g/dL (3.5-5.0); Alkaline Phosphatase 79 U/L (39-117); Anion Gap 14 (12-20); Aspartate Amino Transferase 31 U/L (5-37); Bilirubin Total 0.5 mg/dL (0.0-1.0); Blood Urea Nitrogen 15 mg/dL (9-16); Calcium 9.4 mg/dL (8.4-10.2); Carbon Dioxide 27 mmol/L (22-29); Chloride 100 mmol/L (96-108); Cholesterol 187 mg/dL (<200); Estimated Glomerular Filt Rate > 60; Glucose Fasting 157 mg/dL (60-99); HDL Cholesterol 43 mg/dL (>40); LDL Cholesterol Calculated 114 mg/dL (<100); Potassium 3.2 mmol/L (3.3-5.1); Sodium 138 mmol/L (135-145); Total Protein 7.1 g/dL (6.5-8.0); Triglycerides 154 mg/dL (<150)
[2023-11-28 14:08] LABS: Creatinine Urine 119.45 mg/dL
[2023-11-28 14:20] LABS: Microalbum/Creatinine Ratio Ur 456.2 ug/mg cr (<30)
== END 2023-11-28 09:19 | disposition home or self-care (01) ==
LOC: HO.HMGCLDS 09:18
PROVIDERS: PCP Internal Medicine; Visit Provider Internal Medicine
DX: I10 Essential (primary) hypertension (principal); E78.9 Disorder of lipoprotein metabolism, unspecified; R79.89 Other specified abnormal findings of blood chemistry; J44.9 Chronic obstructive pulmonary disease, unspecified; E11.9 Type 2 diabetes mellitus without complications
CPT/HCPCS: 36415; 80053; 80061; 82043; 82570; 83036

== ENCOUNTER 2023-12-07 14:10 | Outpatient (AMB) | payer OTHER, SELFPAY ==
[2023-12-07 14:14] VITALS: BP 136/70; PULSE 72; O2SAT 95; BMI 31.8
--- NOTE | 2023-12-07 14:14 | HO.NEPHOV ---
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 He is a diabetic with recent HbA1c over 7.0. He is hypertensive and had been needing increasing dose of medications to keep his BP at goal. He is a smoker. Has dyslipidemia and is on statins. His BMI has been on the higher side. He denies retinopathy or neuropathy. He has no skin lesions, sensori neural deafness, hematuria, recurrent sore tharoat, macroscopic hematuria, sinusitis, photosensitivity, epistaxis, edema, CAD, CHF, CVA, PAD, carotid stenosis or DONNELL. His BP is better controlled now. He has no H/O renal stones. He has no new bone or back pain or any H/O worsening anemia or high serum calcium. He has no H/O cancers. He has no H/O excessive NSAID's. His serum creatinine has been stable. COUNT INCLUDES [facility] Medical History Lipid disorder Hypertension, essential Surgical History History of dental surgery Family History Father Diabetes mellitus Mother HTN (hypertension) Brother No problems noted. Brother No problems noted. Other Substance use disorder Social History Housing: House Alcohol intake: former Patient Tobacco Use Status: Current everyday Tobacco user Cigarette Packs Per Day: 0.5 Cigarettes Per Day: 10 e-Cigarette/Vaping Use: Never Used Second Hand Smoke Exposure: No service: Yes Current occupational status: retired Cognitive needs: No Hearing needs: No Vision needs: Yes Physical Exam Vital Signs: Last Vital Signs Pulse 72 12/07/23 14:14 BP 136/70 12/07/23 14:14 Pulse Ox 95 12/07/23 14:14 Oxygen Delivery Method Room Air 12/07/23 14:14 BMI result Body Mass Index 31.8 Const General: comfortable and no acute distress Orientation/consciousness: patient oriented x3 HEENT Head: Yes normocephalic Mouth: Normal oral and palatal mucosa present Eyes EOM: EOMs intact bilaterally Neck Neck: Yes supple Resp Auscultation: clear to auscultation bilaterally Cardio Jugular venous distension: no JVD Rate: regular rate GI Palpation (GI): Soft to palpation Auscultation: normal bowel sounds General: Yes no CVA tenderness Back/Spine/Pelvis Back: no CVA tenderness Skin General skin exam: no rashes or lesions noted Neuro General: patient oriented x3 and moves all extremities Extrem General: Yes no pedal edema Results Reviewed Nephrology Results: Hgb 15.3 g/dl (14.0-18.0) 04/10/23 WBC 9.1 X10*3/uL (4.8-10.8) 04/10/23 Plt Count 191 X10*3/uL (160-400) 04/10/23 Sodium 138 mmol/L (135-145) 11/28/23 Potassium 3.2 mmol/L (3.3-5.1) L 11/28/23 Chloride 100 mmol/L (96-108) 11/28/23 Carbon Dioxide 27 mmol/L (22-29) 11/28/23 BUN 15 mg/dL (9-16) 11/28/23 Creatinine 0.86 mg/dL (0.5-1.4) 11/28/23 Calcium 9.4 mg/dL (8.4-10.2) 11/28/23 Urine Creatinine 119.45 mg/dL 11/28/23 Assessment & Plan Assessment & Plan (1) Proteinuria: Code(s): R80.9 - Proteinuria, unspecified Category: Medical Qualifiers: Proteinuria type: other Qualified Code(s): R80.8 - Other proteinuria (2) Hypertension, essential: Code(s): I10 - Essential (primary) hypertension Category: Medical Plan Farshad has 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 His HbA1c is over 7. He is no multiple antihypertensive medications. His BP control is better. I have ordered work up. His renal functions are normal. I started him on lisinopril( all common side effects of ACEI like cough, rise in serum K, creatinine, angioedema etc). He was asked to avoid excessive NSAID's and maintain good hydration. There is no indication for renal biopsy now. He may need Doppler of renal arteries. I plan to maximize his ACEI with time and adjust other BP medications. Further management is pending evolving data. Answered all questions. F/U appointment given Orders: Orders Creatinine 12/07/23 R80.9 - Proteinuria, unspecified Protein Creatinine Ratio, Ur 12/07/23 R80.9 - Proteinuria, unspecified UA and rflx microscopic 12/07/23 R80.9 - Proteinuria, unspecified Immunofixation Pnl, Serum 12/07/23 R80.9 - Proteinuria, unspecified Blood Urea Nitrogen 12/07/23 R80.9 - Proteinuria, unspecified Electrolytes 12/07/23 R80.9 - Proteinuria, unspecified Medications: New lisinopril 5 mg PO DAILY 30 tabs 2RF
== END 2023-12-07 14:43 | disposition home or self-care (01) ==
PROVIDERS: PCP Internal Medicine; Referring Provider Internal Medicine; Visit Provider Internal Medicine Nephrology
DX: R80.8 Other proteinuria (principal); I10 Essential (primary) hypertension
CPT/HCPCS: 99204

== ENCOUNTER → 2023-12-07 14:10 | Outpatient (BNVA) | payer OTHER, SELFPAY | PROVIDERS: PCP Internal Medicine; Referring Provider Internal Medicine; Visit Provider Internal Medicine Nephrology | DX: R80.8 Other proteinuria (principal); I10 Essential (primary) hypertension; E78.5 Hyperlipidemia, unspecified | CPT/HCPCS: 99202 ==

== ENCOUNTER 2024-02-29 09:41 | Outpatient (REF) | payer OTHER, SELFPAY ==
[2024-02-29 13:13] LABS: Appearance Urine Clear; Color Urine Yellow; Glucose Urine UA Negative (Negative); Leukocyte Esterase Urine Negative (Negative); Nitrite Urine Negative (Negative); PH 8.5 (5.0-9.0); Specific Gravity - Urine 1.015 (1.005-1.025); UMIC TRIGGER UA YES; Urine Blood Negative (Negative); Urine Ketones Negative (Negative); Urine Protein 30 (1+) mg/dL (Neg-Trace)
[2024-02-29 13:16] LABS: MANUAL DIFF FLAG NO
[2024-02-29 13:19] LABS: Bacteria Urine None Seen (None Seen); Hyaline Casts Urine 0-2 /LPF (0-2); RBC Urine 0-2 /HPF (0-2); Squamous Epithelial Cell Urine 0-2 /HPF (0-2); WBC Urine 0-5 /HPF (0-5)
[2024-02-29 13:23] LABS: Basophils Absolute Auto 0.1 X10*3/uL (0.0-0.2); Basophils Percent Auto 0.8 % (0-2); Eosinophils Absolute Auto 0.5 X10*3/uL (0.0-0.4); Eosinophils Percent Auto 6.7 % (0-4); Hematocrit 44.3 % (42.0-52.0); Hemoglobin 15.6 g/dl (14.0-18.0); Imm Gran Abs Auto 0.02 X10*3/uL (0.00-0.03); Imm Gran Pct Auto 0.3 % (0.0-0.4); Lymphocytes Absolute Auto 2.5 X10*3/uL (1.2-4.9); Lymphocytes Percent Auto 34.3 % (20-40); Mean Corpuscular HGB Conc 35.2 g/dl (31.0-36.0); Mean Corpuscular Hemoglobin 31.6 pg (27.0-33.0); Mean Corpuscular Volume 89.9 fL (80.0-98.0); Mean Platelet Volume 11.7 fL (9.4-12.4); Monocytes Absolute Auto 0.5 X10*3/uL (0.1-1.2); Monocytes Percent Auto 7.5 % (2-11); Neutrophils Absolute Auto 3.6 x10*3/uL (2.0-8.3); Neutrophils Percent Auto 50.4 % (45-73); Platelet Count 198 X10*3/uL (160-400); Red Blood Count 4.93 X10*6/uL (4.60-5.80); Red Cell Distribution Width 12.5 % (11.0-16.0); White Blood Count 7.2 X10*3/uL (4.8-10.8)
[2024-02-29 13:37] LABS: Alanine Aminotransferase 51 U/L (0-40); Albumin Level 4.3 g/dL (3.5-5.0); Alkaline Phosphatase 70 U/L (39-117); Anion Gap 12 (12-20); Aspartate Amino Transferase 32 U/L (5-37); Bilirubin Total 0.6 mg/dL (0.0-1.0); Blood Urea Nitrogen 18 mg/dL (9-16); Carbon Dioxide 26 mmol/L (22-29); Chloride 102 mmol/L (96-108); Cholesterol 186 mg/dL (<200); Estimated Glomerular Filt Rate > 60; Glucose Fasting 111 mg/dL (60-99); HDL Cholesterol 45 mg/dL (>40); LDL Cholesterol Calculated 112 mg/dL (<100); Potassium 3.7 mmol/L (3.3-5.1); Sodium 136 mmol/L (135-145); Total Protein 7.3 g/dL (6.5-8.0); Triglycerides 148 mg/dL (<150)
[2024-02-29 13:44] LABS: Estimated Average Glucose 169 mg/dL; Hemoglobin A1c % 7.5 % (<6.0)
[2024-02-29 13:49] LABS: Creatinine Urine 46.28 mg/dL; Protein/Creatinine Ratio, Ur 0.43 (<0.2); Total Protein Urine Random 20 mg/dL (<12)
[2024-03-05 19:28] LABS: IgA 172 mg/dL (70-320); IgG 921 mg/dL (600-1540); IgM 130 mg/dL (50-300)
== END 2024-02-29 09:42 | disposition home or self-care (01) ==
LOC: HO.HMGCLDS 09:41
PROVIDERS: PCP Internal Medicine; Referring Provider Internal Medicine Nephrology; Visit Provider Internal Medicine
DX: R80.9 Proteinuria, unspecified (principal); I10 Essential (primary) hypertension; E78.9 Disorder of lipoprotein metabolism, unspecified; R79.89 Other specified abnormal findings of blood chemistry; E66.09 Other obesity due to excess calories; E11.9 Type 2 diabetes mellitus without complications; J44.9 Chronic obstructive pulmonary disease, unspecified
CPT/HCPCS: 36415; 80053; 80061; 81001; 82570; 82784; 83036; 84156; 85025; 86334

== ENCOUNTER 2024-03-07 09:03 | Outpatient (AMB) | payer OTHER, SELFPAY ==
--- NOTE | 2024-03-07 09:39 | HO.NEPHOV ---
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 He is a diabetic with recent HbA1c over 7.0. He is hypertensive and had been needing increasing dose of medications to keep his BP at goal. He is a smoker. Has dyslipidemia and is on statins. His BMI has been on the higher side. He denies retinopathy or neuropathy. He has no skin lesions, sensori neural deafness, hematuria, recurrent sore tharoat, macroscopic hematuria, sinusitis, photosensitivity, epistaxis, edema, CAD, CHF, CVA, PAD, carotid stenosis or DONNELL. His BP is better controlled now. He has no H/O renal stones. He has no new bone or back pain or any H/O worsening anemia or high serum calcium. He has no H/O cancers. He has no H/O excessive NSAID's. His serum creatinine has been stable. [facility] Medical History Lipid disorder Hypertension, essential Surgical History History of dental surgery Family History Father Diabetes mellitus Mother HTN (hypertension) Brother No problems noted. Brother No problems noted. Other Substance use disorder Social History Housing: House Alcohol intake: former Patient Tobacco Use Status: Current everyday Tobacco user Cigarette Packs Per Day: 0.5 Cigarettes Per Day: 10 e-Cigarette/Vaping Use: Never Used Second Hand Smoke Exposure: No service: Yes Current occupational status: retired Cognitive needs: No Hearing needs: No Vision needs: Yes Physical Exam Vital Signs: Last Vital Signs Pulse 61 03/07/24 09:40 BP 154/80 H 03/07/24 09:40 Pulse Ox 94 03/07/24 09:40 Oxygen Delivery Method Room Air 03/07/24 09:40 BMI result Body Mass Index 31.4 Const General: comfortable and no acute distress Orientation/consciousness: patient oriented x3 HEENT Head: Yes normocephalic Mouth: Normal oral and palatal mucosa present Eyes EOM: EOMs intact bilaterally Neck Neck: Yes supple Resp Auscultation: clear to auscultation bilaterally Cardio Jugular venous distension: no JVD Rate: regular rate GI Palpation (GI): Soft to palpation Auscultation: normal bowel sounds General: Yes no CVA tenderness Back/Spine/Pelvis Back: no CVA tenderness Skin General skin exam: no rashes or lesions noted Neuro General: patient oriented x3 and moves all extremities Extrem General: Yes no pedal edema Results Reviewed Nephrology Results: Hgb 15.6 g/dl (14.0-18.0) 02/29/24 WBC 7.2 X10*3/uL (4.8-10.8) 02/29/24 Plt Count 198 X10*3/uL (160-400) 02/29/24 Sodium 136 mmol/L (135-145) 02/29/24 Potassium 3.7 mmol/L (3.3-5.1) 02/29/24 Chloride 102 mmol/L (96-108) 02/29/24 Carbon Dioxide 26 mmol/L (22-29) 02/29/24 BUN 18 mg/dL (9-16) H 02/29/24 Creatinine 0.84 mg/dL (0.5-1.4) 02/29/24 Calcium 10.0 mg/dL (8.4-10.2) 02/29/24 Urine Protein 30 (1+) mg/dL (Neg-Trace) H 02/29/24 Urine Creatinine 46.28 mg/dL 02/29/24 Protein/Creatinin Ratio 0.43 (<0.2) H 02/29/24 Assessment & Plan Assessment & Plan (1) Proteinuria: Code(s): R80.9 - Proteinuria, unspecified Category: Medical Qualifiers: Proteinuria type: other Qualified Code(s): R80.8 - Other proteinuria (2) Hypertension, essential: Code(s): I10 - Essential (primary) hypertension Category: Medical Plan Farshad has 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 His HbA1c is over 7. He is no multiple antihypertensive medications. His BP control is better. His renal functions are normal. I discontinued his Amlodipine and increased his lisinopril to 10 mg ( all common side effects of ACEI like cough, rise in serum K, creatinine, angioedema etc). He was asked to avoid excessive NSAID's and maintain good hydration. There is no indication for renal biopsy now. He may need Doppler of renal arteries. I plan to maximize his ACEI with time and adjust other BP medications. Further management is pending evolving data. Answered all questions. F/U appointment given Orders: Orders Creatinine Today R80.8 - Other proteinuria Blood Urea Nitrogen Today R80.8 - Other proteinuria Electrolytes Today R80.8 - Other proteinuria Protein Creatinine Ratio, Ur Today R80.8 - Other proteinuria Coding Level of Care Code Est Pt Level 4 (55063) Diagnoses Other proteinuria R80.8 Proteinuria type: other Hypertension, essential I10
[2024-03-07 09:40] VITALS: BP 154/80; PULSE 61; O2SAT 94; BMI 31.4
== END 2024-03-07 10:01 | disposition home or self-care (01) ==
PROVIDERS: PCP Internal Medicine; Visit Provider Internal Medicine Nephrology
DX: R80.8 Other proteinuria (principal); I10 Essential (primary) hypertension
CPT/HCPCS: 99214

== ENCOUNTER → 2024-03-07 09:03 | Outpatient (BNVA) | payer OTHER, SELFPAY | PROVIDERS: PCP Internal Medicine; Visit Provider Internal Medicine Nephrology | DX: R80.8 Other proteinuria (principal); I10 Essential (primary) hypertension | CPT/HCPCS: 99212 ==

== ENCOUNTER 2024-05-09 12:38 | Outpatient (AMB) | payer OTHER, SELFPAY ==
[2024-05-09 12:41] VITALS: BP 122/82; PULSE 70; O2SAT 96; BMI 31.1
--- NOTE | 2024-05-09 12:41 | A.OFFPC_ITS ---
Vital Signs 05/09/24 12:41 Height 5 ft 4 in Weight 181 lb BMI 31.1 BP 122/82 Blood Pressure Location Rt brachial Position Sitting Pulse 70 Pulse Source Pulse Oximeter Pulse Oximetry (%) 96 Oxygen Delivery Method Room Air Intake Visit Reasons: Annual PE Allergies shellfish derived Allergy (Mild, Verified 05/09/24 12:43) Hives Medication List - Last Reconciled 05/09/24 by Navya العلي MD albuterol sulfate 90 mcg/actuation (Ventolin HFA) 1 inh inhalation QID PRN 30 days aspirin (Adult Low Dose Aspirin) 81 mg PO DAILY atenolol-chlorthalidone 100-25 mg 1 tab PO DAILY 90 days atorvastatin 20 mg PO DAILY cholecalciferol (vitamin D3) PO DAILY glipizide 5 mg PO DAILY 90 days lisinopril 10 mg PO DAILY multivitamin (Daily Multi-Vitamin) PO Tobacco use date assessed: 05/09/24 Fall risk assessment: No Falls in past year Last assessed Fall Risk: 05/09/24 Dental Screening Dental Screen Date: 11/27/23 HPI Annual PE HPI Details Patient is 68-year-old gentleman came in today for physical examination Patient is in his usual state of health offer no new complaints Taking all his medications no side effects Colonoscopy [place] [address] Potter patient says that next 1 will be in 2026 Blood pressure is well-controlled today Hemoglobin A1c was 7.5% in February Patient is walking 10,000 steps every day Follow-up 3 months [facility], [facility] Medical History Lipid disorder Hypertension, essential Surgical History History of dental surgery Family History Father Diabetes mellitus Mother HTN (hypertension) Brother No problems noted. Brother No problems noted. Other Substance use disorder Social History Housing: House Alcohol intake: former Patient Tobacco Use Status: Current everyday Tobacco user Cigarette Packs Per Day: 0.5 Cigarettes Per Day: 10 e-Cigarette/Vaping Use: Never Used Second Hand Smoke Exposure: No service: Yes Current occupational status: retired Cognitive needs: No Hearing needs: No Vision needs: Yes Questionnaire PHQ-9 Over the last 2 weeks, how often have you been bothered by any of the following problems? 1. Little interest or pleasure in doing things: not at all 2. Feeling down, depressed, or hopeless: not at all 3. Trouble falling or staying asleep, or sleeping too much: not at all 4. Feeling tired or having little energy: not at all 5. Poor appetite or overeating: not at all 6. Feeling bad about yourself - or that you are a failure or have let yourself or your family down: not at all 7. Trouble concentrating on things, such as reading the newspaper or watching television: not at all 8. Moving or speaking so slowly that other people could have noticed. Or the opposite - being so fidgety or restless that you have been moving around a lot more than usual: not at all 9. Thoughts that you would be better off or of hurting yourself in some way: not at all Total score: 0 Depression Screening Interpretation: Negative Depression Screening Done: Yes 17298 - PHQ-9 Billing: Yes Source: Developed by Drs. Bobby Gutierrez, Alyse Zaragoza, Frank Small and colleagues, with an educational sera from [employer]. Thrive Questionnaire Date Thrive assessed: 05/02/24 I am a: Patient What is your living situation today?: I have a steady place to live Within the past 12 months, did the food you bought not last and you didn't have the money to get more?: Never true Within the past 12 months, did you worry whether your food would run out before you got money to buy more?: Never true Do you have trouble paying for medicines?: No Do you have trouble getting transportation to medical appointments?: No Do you have trouble paying your heating and electricity bill?: No Do you have trouble taking care of your child, family member or friend?: No Do you have trouble with day-to-day activities such as bathing, preparing meals, shopping, managing finances, etc.?: No Are you currently unemployed and looking for a job?: No Are you interested in more education?: No Please select the resources that you would like help with: None Currently or been in a relationship where the following occur: No concerns reported THRIVE Score: 0 AUDIT C Alcohol Use Questionnaire (AUDIT-C) 1. How often do you have a drink containing alcohol?: Never 3. How often do you have six or more drinks on one occasion?: Never Total Score: 0 MARILYNN-7 AMB Questionnaire MARILYNN-7 Date MARILYNN - 7 assessed: 05/09/24 Feeling nervous, anxious, or on edge: 0 = Not at all Not being able to stop or control worryin = Not at all Worrying too much about different things: 0 = Not at all Trouble relaxin = Not at all Being so restless that it is hard to sit still: 0 = Not at all Becoming easily annoyed or irritable: 1 = Several days Feeling afraid as if something awful might happen: 0 = Not at all Total MARILYNN-7 score (0-4 normal; 5-9 mild; 10-14 moderate; 15-21 severe): 1 Source: Developed by Drs. Bobby Gutierrez, Alyse Zaragoza, Frank Small and colleagues, with an educational sera from [employer]. Review of Systems Const Denies chills, Denies fever(s) and Denies headache(s) Eyes Denies blurry vision ENT Denies headache(s), Denies nasal discharge, Denies nasal obstruction, Denies odynophagia and Denies sinus pain Card Denies chest pain at rest and Denies chest pain with activity Resp Denies cough and Denies hemoptysis GI Denies diarrhea, Denies odynophagia, Denies vomiting and Denies hematemesis Reports as per HPI Musc Denies abnormal gait Skin/Breast Reports as per HPI Neuro Denies Neuro-related abnormal movements, Denies Abnormal speech present, Denies abnormal gait, Denies headache(s) and Denies Sensory deficit (Neuro) Psych Denies mood swings and Denies paranoia Endo Reports as per HPI Roman/Lymph Reports as per HPI Aller/Immun Reports as per HPI Physical exam (Primary Care) Vital Signs: Last Vital Signs Pulse 70 05/09/24 12:41 BP 122/82 05/09/24 12:41 Pulse Ox 96 05/09/24 12:41 Oxygen Delivery Method Room Air 05/09/24 12:41 BMI result Body Mass Index 31.1 Tobacco/Smoking Status: Tobacco use Status Tobacco use date assessed 05/09/24 05/09/24 12:46 Patient Tobacco Use Status Current everyday Tobacco 05/09/24 12:46 e-Cigarette/Vaping Use Never Used 05/09/24 12:46 PHQ-9: PHQ-9 Score PHQ-9: Total score 0 05/09/24 12:46 Depression Screening Interpretation: Negative Thrive Assessment: Date of Thrive Assessment Date Thrive assessed 05/02/24 05/09/24 12:46 Currently or been in a relationship where the following occur: No concerns reported Const General: cooperative, comfortable and no acute distress Orientation/consciousness: patient oriented x3 HENMT Head: Yes normocephalic and Yes atraumatic Eyes General: appearance normal, both eyes and all related structures Pupils: Equal, round and reactive pupils present EOM: EOMs intact bilaterally Neck Neck: Yes supple and No lymphadenopathy Thyroid: Thyroid normal Lymphatic: no lymphadenopathy noted Resp Effort & Inspection: normal respiratory effort and able to speak in complete sentences Auscultation: clear to auscultation bilaterally Cardio Heart sounds: S1 normal heart sound present and S2 normal heart sound present GI Palpation (GI): Soft to palpation and nontender Auscultation: normal bowel sounds General: Yes no CVA tenderness Back/Spine/Pelvis Back: no CVA tenderness Skin General skin exam: elasticity normal and turgor normal Neuro General: patient oriented x3 and gait normal Cranial nerves: Yes Equal, round and reactive pupils present Speech: No Abnormal speech present Sensory Exam: No Sensory deficit (Neuro) Coordination: tandem gait normal and Romberg test negative Extrem General: Yes normal exam except as noted and No edema Assessment and Plan Assessment & Plan (1) Encounter for general adult medical examination with abnormal findings: Code(s): Z00.01 - Encounter for general adult medical examination with abnormal findings (2) Non-insulin dependent type 2 diabetes mellitus: Code(s): E11.9 - Type 2 diabetes mellitus without complications (3) COPD (chronic obstructive pulmonary disease): Code(s): J44.9 - Chronic obstructive pulmonary disease, unspecified Qualifiers: COPD type: emphysema Emphysema type: panlobular Qualified Code(s): J43.1 - Panlobular emphysema (4) Hypertension, essential: Code(s): I10 - Essential (primary) hypertension (5) Lipid disorder: Code(s): E78.9 - Disorder of lipoprotein metabolism, unspecified (6) Tobacco abuse: Code(s): Z72.0 - Tobacco use (7) LFT elevation: Code(s): R79.89 - Other specified abnormal findings of blood chemistry (8) Obesity due to excess calories: Code(s): E66.09 - Other obesity due to excess calories Qualifiers: Obesity classification: adult class 1 (BMI 30 - 34.9) Serious obesity comorbidity presence: with serious comorbidity Body mass index: BMI 32.0-32.9 Qualified Code(s): E66.09 - Other obesity due to excess calories; Z68.32 - Body mass index [BMI] 32.0-32.9, adult Plan Patient is 68-year-old gentleman came in today for physical examination Patient is in his usual state of health offer no new complaints Taking all his medications no side effects Colonoscopy was in [address] Potter patient says that next 1 will be in 2026 Blood pressure is well-controlled today Hemoglobin A1c was 7.5% in February Patient is walking 10,000 steps every day Follow-up 3 months Coding Level of Care Code Est Pt Level 3 (17752) Est Pt Prev Care >65y(93227) Diagnoses Encounter for general adult medical examination with abnormal findings Z00.01 Non-insulin dependent type 2 diabetes mellitus E11.9 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 type: emphysema Emphysema type: panlobular Hypertension, essential I10 Lipid disorder E78.9 Tobacco abuse Z72.0 LFT elevation R79.89 Class 1 obesity due to excess calories with serious comorbidity and body mass index (BMI) of 32.0 to 32.9 in adult E66.09; Z68.32 Obesity classification: adult class 1 (BMI 30 - 34.9) Serious obesity comorbidity presence: with serious comorbidity Body mass index: BMI 32.0-32.9
== END 2024-05-09 14:36 | disposition home or self-care (01) ==
PROVIDERS: PCP Internal Medicine; Visit Provider Internal Medicine
DX: Z00.00 Encounter for general adult medical examination without abnormal findings (principal); E11.9 Type 2 diabetes mellitus without complications; J43.1 Panlobular emphysema; I10 Essential (primary) hypertension; E78.9 Disorder of lipoprotein metabolism, unspecified; Z72.0 Tobacco use; R79.89 Other specified abnormal findings of blood chemistry; E66.09 Other obesity due to excess calories; Z68.32 Body mass index [BMI] 32.0-32.9, adult
CPT/HCPCS: 99397

== ENCOUNTER → 2024-05-16 11:29 | Outpatient (BNVA) | payer OTHER, SELFPAY | PROVIDERS: PCP Internal Medicine; Visit Provider Internal Medicine Nephrology | DX: R80.8 Other proteinuria (principal); E11.21 Type 2 diabetes mellitus with diabetic nephropathy; E78.5 Hyperlipidemia, unspecified; I10 Essential (primary) hypertension; Z79.899 Other long term (current) drug therapy | CPT/HCPCS: 99212 ==

== ENCOUNTER 2024-05-16 11:30 | Outpatient (AMB) | payer OTHER, SELFPAY ==
[2024-05-16 11:38] VITALS: BP 150/72; PULSE 73; O2SAT 97; BMI 31.3
--- NOTE | 2024-05-16 11:38 | HO.NEPHOV ---
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 He is a diabetic with recent HbA1c over 7.0. He is hypertensive and had been needing increasing dose of medications to keep his BP at goal. He is a smoker. Has dyslipidemia and is on statins. His BMI has been on the higher side. He denies retinopathy or neuropathy. He has no skin lesions, sensori neural deafness, hematuria, recurrent sore tharoat, macroscopic hematuria, sinusitis, photosensitivity, epistaxis, edema, CAD, CHF, CVA, PAD, carotid stenosis or DONNELL. His BP is better controlled now. He has no H/O renal stones. He has no new bone or back pain or any H/O worsening anemia or high serum calcium. He has no H/O cancers. He has no H/O excessive NSAID's. His serum creatinine has been stable. [facility] Medical History Lipid disorder Hypertension, essential Surgical History History of dental surgery Family History Father Diabetes mellitus Mother HTN (hypertension) Brother No problems noted. Brother No problems noted. Other Substance use disorder Social History Housing: House Alcohol intake: former Patient Tobacco Use Status: Current everyday Tobacco user Cigarette Packs Per Day: 0.5 Cigarettes Per Day: 10 e-Cigarette/Vaping Use: Never Used Second Hand Smoke Exposure: No service: Yes Current occupational status: retired Cognitive needs: No Hearing needs: No Vision needs: Yes Review of Systems Const All systems reviewed & are unremarkable except as noted in HPI and below Physical Exam Vital Signs: Last Vital Signs Pulse 73 05/16/24 11:38 BP 150/72 H 05/16/24 11:38 Pulse Ox 97 05/16/24 11:38 Oxygen Delivery Method Room Air 05/16/24 11:38 BMI result Body Mass Index 31.3 Const General: comfortable and no acute distress Orientation/consciousness: patient oriented x3 HEENT Head: Yes normocephalic Mouth: Normal oral and palatal mucosa present Eyes EOM: EOMs intact bilaterally Neck Neck: Yes supple Resp Auscultation: clear to auscultation bilaterally Cardio Jugular venous distension: no JVD Rate: regular rate GI Palpation (GI): Soft to palpation Auscultation: normal bowel sounds General: Yes no CVA tenderness Back/Spine/Pelvis Back: no CVA tenderness Skin General skin exam: no rashes or lesions noted Neuro General: patient oriented x3 and moves all extremities Extrem General: Yes no pedal edema Results Reviewed Nephrology Results: Hgb 15.6 g/dl (14.0-18.0) 02/29/24 WBC 7.2 X10*3/uL (4.8-10.8) 02/29/24 Plt Count 198 X10*3/uL (160-400) 02/29/24 Sodium 136 mmol/L (135-145) 02/29/24 Potassium 3.7 mmol/L (3.3-5.1) 02/29/24 Chloride 102 mmol/L (96-108) 02/29/24 Carbon Dioxide 26 mmol/L (22-29) 02/29/24 BUN 18 mg/dL (9-16) H 02/29/24 Creatinine 0.84 mg/dL (0.5-1.4) 02/29/24 Calcium 10.0 mg/dL (8.4-10.2) 02/29/24 Urine Protein 30 (1+) mg/dL (Neg-Trace) H 02/29/24 Urine Creatinine 46.28 mg/dL 02/29/24 Protein/Creatinin Ratio 0.43 (<0.2) H 02/29/24 Assessment & Plan Assessment & Plan (1) Proteinuria: Code(s): R80.9 - Proteinuria, unspecified Category: Medical Qualifiers: Proteinuria type: other Qualified Code(s): R80.8 - Other proteinuria (2) Hypertension, essential: Code(s): I10 - Essential (primary) hypertension Category: Medical (3) Diabetic nephropathy: 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 Category: Medical Plan Farshad has 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 His HbA1c is over 7. He is no multiple antihypertensive medications. His BP control is better. His renal functions are normal. I increased his lisinopril to 20 mg ( all common side effects of ACEI like cough, rise in serum K, creatinine, angioedema etc). He was asked to avoid excessive NSAID's and maintain good hydration. There is no indication for renal biopsy now. He may need Doppler of renal arteries. I plan to maximize his ACEI with time and adjust other BP medications. Further management is pending evolving data. Answered all questions. F/U appointment given Orders: Orders Electrolytes Today E11.21 - Type 2 diabetes mellitus with diabetic nephropathy, I10 - Essential (primary) hypertension, R80.8 - Other proteinuria Creatinine Today E11.21 - Type 2 diabetes mellitus with diabetic nephropathy, I10 - Essential (primary) hypertension, R80.8 - Other proteinuria Blood Urea Nitrogen Today E11.21 - Type 2 diabetes mellitus with diabetic nephropathy, I10 - Essential (primary) hypertension, R80.8 - Other proteinuria Coding Level of Care Code Est Pt Level 4 (13227) Diagnoses Other proteinuria R80.8 Proteinuria type: other Hypertension, essential I10 Diabetic nephropathy E11.21
== END 2024-05-16 12:10 | disposition home or self-care (01) ==
PROVIDERS: PCP Internal Medicine; Visit Provider Internal Medicine Nephrology
DX: R80.8 Other proteinuria (principal); I10 Essential (primary) hypertension; E11.21 Type 2 diabetes mellitus with diabetic nephropathy
CPT/HCPCS: 99214

== ENCOUNTER 2024-08-21 09:00 | Outpatient (REF) | payer OTHER, SELFPAY ==
[2024-08-21 13:57] LABS: Anion Gap 12 (12-20); Blood Urea Nitrogen 22 mg/dL (9-16); Carbon Dioxide 27 mmol/L (22-29); Chloride 104 mmol/L (96-108); Estimated Glomerular Filt Rate > 60; Potassium 3.7 mmol/L (3.3-5.1); Sodium 139 mmol/L (135-145)
== END 2024-08-21 09:01 | disposition home or self-care (01) ==
LOC: HO.HMGCLDS 09:00
PROVIDERS: PCP Internal Medicine; Visit Provider Internal Medicine Nephrology
DX: R80.8 Other proteinuria (principal); I10 Essential (primary) hypertension; E11.21 Type 2 diabetes mellitus with diabetic nephropathy
CPT/HCPCS: 36415; 80051; 82565; 84520

== ENCOUNTER 2024-11-14 11:32 | Outpatient (AMB) | payer MEDICARE, SELFPAY ==
--- NOTE | 2024-11-14 12:04 | HO.NEPHOV_ITS ---
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 He is a diabetic with recent HbA1c over 7.0. He is hypertensive and had been needing increasing dose of medications to keep his BP at goal. He is a smoker. Has dyslipidemia and is on statins. His BMI has been on the higher side. He denies retinopathy or neuropathy. He has no skin lesions, sensori neural deafness, hematuria, recurrent sore tharoat, macroscopic hematuria, sinusitis, photosensitivity, epistaxis, edema, CAD, CHF, CVA, PAD, carotid stenosis or DONNELL. His BP is better controlled now. He has no H/O renal stones. He has no new bone or back pain or any H/O worsening anemia or high serum calcium. He has no H/O cancers. He has no H/O excessive NSAID's. His serum creatinine has been stable. [facility] Medical History Lipid disorder Hypertension, essential Surgical History History of dental surgery Family History Father Diabetes mellitus Mother HTN (hypertension) Brother No problems noted. Brother No problems noted. Other Substance use disorder Social History Housing: House Alcohol intake: former Patient Tobacco Use Status: Current everyday Tobacco user Cigarette Packs Per Day: 0.5 Cigarettes Per Day: 10 e-Cigarette/Vaping Use: Never Used Second Hand Smoke Exposure: No service: Yes Current occupational status: retired Cognitive needs: No Hearing needs: No Vision needs: Yes Review of Systems Const All systems reviewed & are unremarkable except as noted in HPI and below Physical Exam Vital Signs: Last Vital Signs Pulse 73 11/14/24 12:06 BP 140/90 H 11/14/24 12:06 Pulse Ox 95 11/14/24 12:06 Oxygen Delivery Method Room Air 11/14/24 12:06 BMI result Body Mass Index 30.3 Const General: comfortable and no acute distress Orientation/consciousness: patient oriented x3 HEENT Head: Yes normocephalic Mouth: Normal oral and palatal mucosa present Eyes EOM: EOMs intact bilaterally Neck Neck: Yes supple Resp Auscultation: clear to auscultation bilaterally Cardio Jugular venous distension: no JVD Rate: regular rate GI Palpation (GI): Soft to palpation Auscultation: normal bowel sounds Skin General skin exam: no rashes or lesions noted Neuro General: patient oriented x3 and moves all extremities Extrem General: Yes no pedal edema Results Reviewed Nephrology Results: Hgb 15.6 g/dl (14.0-18.0) 02/29/24 WBC 7.2 X10*3/uL (4.8-10.8) 02/29/24 Plt Count 198 X10*3/uL (160-400) 02/29/24 Sodium 139 mmol/L (135-145) 08/21/24 Potassium 3.7 mmol/L (3.3-5.1) 08/21/24 Chloride 104 mmol/L (96-108) 08/21/24 Carbon Dioxide 27 mmol/L (22-29) 08/21/24 BUN 22 mg/dL (9-16) H 08/21/24 Creatinine 1.07 mg/dL (0.5-1.4) 08/21/24 Calcium 10.0 mg/dL (8.4-10.2) 02/29/24 Urine Protein 30 (1+) mg/dL (Neg-Trace) H 02/29/24 Urine Creatinine 46.28 mg/dL 02/29/24 Protein/Creatinin Ratio 0.43 (<0.2) H 02/29/24 Assessment & Plan Assessment & Plan (1) Diabetic nephropathy: 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 Category: Medical Qualifiers: Diabetes mellitus type: type 2 Qualified 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 (2) Hypertension, essential: Code(s): I10 - Essential (primary) hypertension Category: Medical Plan Farshad has 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 His HbA1c was over 7. He is no multiple antihypertensive medications. His BP control is better. His renal functions are normal. I increased his lisinopril to 30 mg ( all common side effects of ACEI like cough, rise in serum K, creatinine, angioedema etc). He was asked to avoid excessive NSAID's and maintain good hydration. There is no indication for renal biopsy now. He may need Doppler of renal arteries. I plan to maximize his ACEI with time and adjust other BP medications. Further management is pending evolving data. Answered all questions. F/U appointment given Orders: Orders Protein Creatinine Ratio, Ur 1 Year E11.21 - Type 2 diabetes mellitus with diabetic nephropathy Creatinine 1 Year E11.21 - Type 2 diabetes mellitus with diabetic nephropathy Blood Urea Nitrogen 1 Year E11.21 - Type 2 diabetes mellitus with diabetic nep hropathy Electrolytes 1 Year E11.21 - Type 2 diabetes mellitus with diabetic nephropathy Medications: Changed From lisinopril 20 mg PO DAILY 90 days 90 tabs 4RF To lisinopril 30 mg PO DAILY 90 days 90 tabs 4RF Coding Level of Care Code Est Pt Level 4 (75565) Diagnoses 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 Diabetes mellitus type: type 2 Hypertension, essential I10
[2024-11-14 12:06] VITALS: BP 140/90; PULSE 73; O2SAT 95; BMI 30.3
== END 2024-11-14 12:33 | disposition home or self-care (01) ==
PROVIDERS: PCP Internal Medicine; Visit Provider Internal Medicine Nephrology
DX: E11.21 Type 2 diabetes mellitus with diabetic nephropathy (principal); I10 Essential (primary) hypertension
CPT/HCPCS: 99214

== ENCOUNTER → 2024-11-14 11:32 | Outpatient (BNVA) | payer MEDICARE, SELFPAY | PROVIDERS: PCP Internal Medicine; Visit Provider Internal Medicine Nephrology | DX: E11.21 Type 2 diabetes mellitus with diabetic nephropathy (principal); I10 Essential (primary) hypertension | CPT/HCPCS: 99212 ==

== ENCOUNTER 2024-11-17 08:46 | Outpatient (REF) | payer MEDICARE, SELFPAY ==
[2024-11-17 10:43] LABS: Anion Gap 12 (12-20); Blood Urea Nitrogen 17 mg/dL (9-16); Carbon Dioxide 25 mmol/L (22-29); Chloride 105 mmol/L (96-108); Estimated Glomerular Filt Rate > 60; Potassium 4.2 mmol/L (3.3-5.1); Sodium 138 mmol/L (135-145)
[2024-11-17 14:09] LABS: Creatinine Urine 99.64 mg/dL; Protein/Creatinine Ratio, Ur 0.41 (<0.2); Total Protein Urine Random 41 mg/dL (<12)
== END 2024-11-17 08:47 | disposition home or self-care (01) ==
LOC: HO.HMGCLDS 08:46
PROVIDERS: PCP Internal Medicine; Visit Provider Internal Medicine Nephrology
DX: E11.21 Type 2 diabetes mellitus with diabetic nephropathy (principal)
CPT/HCPCS: 36415; 80051; 82565; 82570; 84156; 84520

== ENCOUNTER 2024-11-21 11:52 | Outpatient (AMB) | payer MEDICARE, SELFPAY ==
[2024-11-21 12:00] VITALS: BP 136/72; PULSE 75; RESP 17; O2SAT 95; BMI 30.4
--- NOTE | 2024-11-21 12:00 | A.OFFPC_ITS ---
Vital Signs 11/21/24 12:00 Height 5 ft 4 in Weight 177 lb 3 oz BMI 30.4 BP 136/72 Blood Pressure Location Rt brachial Position Sitting Respiration 17 Pulse 75 Pulse Source Pulse Oximeter Pulse Oximetry (%) 95 Oxygen Delivery Method Room Air Intake Visit Reasons: 4M F/U Allergies shellfish derived Allergy (Mild, Verified 11/21/24 12:01) Hives Medication List - Last Reconciled 11/21/24 by Navya العلي MD albuterol sulfate 90 mcg/actuation (Ventolin HFA) 1 inh inhalation QID PRN 30 days aspirin (Adult Low Dose Aspirin) 81 mg PO DAILY atenolol-chlorthalidone 100-25 mg 1 tab PO DAILY atorvastatin 20 mg PO DAILY cholecalciferol (vitamin D3) PO DAILY glipizide 5 mg PO DAILY 90 days lisinopril 30 mg PO DAILY 90 days multivitamin (Daily Multi-Vitamin) PO Tobacco use date assessed: 11/21/24 Fall risk assessment: No Falls in past year Last assessed Fall Risk: 11/21/24 Dental Screening Dental Screen Date: 11/21/24 Did you have a dental visit in the last 12 months?: No Did you have a dental problem in the last 6 months where you did not have access to dental care?: No Was dental information given to patient?: Patient has dentist HPI 4M F/U HPI Details Follow-up appointment - The patient is a 68-year-old male pres enting with routine monitoring and follow-up care for chronic conditions. - patient account specialist [facility]: Blood pressure consistently managed, with a recent reading of 136/72 mmHg. - Blood glucose levels to be checked dur ing the visit; patient has a history of diabetes managed with medication. - COPD , patient experiences breathing i ssues exacerbated by weather and has not had pulmonary function tests. - On treatment for hyperlipidemia. - Reports regular physical exercise and reduced smoking. - Social support includes living with a brother receiving weekly nurse care. Problem List - Essential Hypertension - Chronic Obstructive Pulmonary Disease (COPD) - Diabetes Mellitus - Hyperlipidemi - tobacco abuse - wheezing Patient Instructions - Continue monitoring blood pressure and report any significant changes or symptoms. - Maintain current exercise regimen and efforts to reduce smoking. - Expect a call to schedule a pulmonary function test; follow through with scheduling promptly. - Return for routine blood tests before the next visit scheduled in May. - quit smoking Review of Systems General: No fever no chills neurological: No headaches no dizziness ear nose throat: No sore throat no hearing difficulty no ear pain cardiovascular: No syncope, no chest pain, no palpitations gastrointestinal: No nausea vomiting or diarrhea endocrine: No polyuria polydipsia no heat intolerance genitourinary: No dysuria skin: No new complaints Physical Exam general: No acute distress HEENT: No acute findings neck: Supple respiratory system: Wheezing noted cardiovascular: S1-S2 gastrointestinal: No pain extremities: No new findings REGISTRY NURSE: Alert awake oriented x3 motor sensory intact skin: Normal turgor [facility] Medical History Lipid disorder Hypertension, essential Surgical History History of dental surgery Family History Father Diabetes mellitus Mother HTN (hypertension) Brother No problems noted. Brother No problems noted. Other Substance use disorder Social History Housing: House Alcohol intake: former Patient Tobacco Use Status: Current everyday Tobacco user Cigarette Packs Per Day: 0.5 Cigarettes Per Day: 10 e-Cigarette/Vaping Use: Never Used Second Hand Smoke Exposure: No service: Yes Current occupational status: retired Cognitive needs: No Hearing needs: No Vision needs: Yes Questionnaire PHQ-9 Over the last 2 weeks, how often have you been bothered by any of the following problems? 1. Little interest or pleasure in doing things: not at all 2. Feeling down, depressed, or hopeless: not at all 3. Trouble falling or staying asleep, or sleeping too much: not at all 4. Feeling tired or having little energy: not at all 5. Poor appetite or overeating: not at all 6. Feeling bad about yourself - or that you are a failure or have let yourself or your family down: not at all 7. Trouble concentrating on things, such as reading the newspaper or watching television: not at all 8. Moving or speaking so slowly that other people could have noticed. Or the opposite - being so fidgety or restless that you have been moving around a lot more than usual: not at all 9. Thoughts that you would be better off or of hurting yourself in some way: not at all Total score: 0 Depression Screening Interpretation: Negative Depression Screening Done: Yes 32068 - PHQ-9 Billing: Yes Source: Developed by Drs. Bobby Gutierrez, Alyse Zaragoza, Frank Small and colleagues, with an educational sera from [employer]. Thrive Questionnaire Date Thrive assessed: 11/21/24 I am a: Patient What is your living situation today?: I have a steady place to live Within the past 12 months, did the food you bought not last and you didn't have the money to get more?: Never true Within the past 12 months, did you worry whether your food would run out before you got money to buy more?: Never true Do you have trouble paying for medicines?: No Do you have trouble getting transportation to medical appointments?: No Do you have trouble paying your heating and electricity bill?: No Do you have trouble taking care of your child, family member or friend?: No Do you have trouble with day-to-day activities such as bathing, preparing meals, shopping, managing finances, etc.?: No Are you currently unemployed and looking for a job?: No Are you interested in more education?: No Please select the resources that you would like help with: None Currently or been in a relationship where the following occur: No concerns reported THRIVE Score: 0 AUDIT C Alcohol Use Questionnaire (AUDIT-C) 1. How often do you have a drink containing alcohol?: Never 3. How often do you have six or more drinks on one occasion?: Never Total Score: 0 Score Reviewed/Action Taken: Yes MARILYNN-7 AMB Questionnaire MARILYNN-7 Date MARILYNN - 7 assessed: 11/21/24 Feeling nervous, anxious, or on edge: 0 = Not at all Not being able to stop or control worryin = Not at all Worrying too much about different things: 0 = Not at all Trouble relaxin = Not at all Being so restless that it is hard to sit still: 0 = Not at all Becoming easily annoyed or irritable: 0 = Not at all Feeling afraid as if something awful might happen: 0 = Not at all Total MARILYNN-7 score (0-4 normal; 5-9 mild; 10-14 moderate; 15-21 severe): 0 Source: Developed by Drs. Bobby Gutierrez, Alyse Zaragoza, Frank Small and colleagues, with an educational sera from [employer]. MARILYNN-7 Assessment Billing MARILYNN-7 Assessment Tool: MARILYNN-7 Assessment 07093 Physical exam (Primary Care) Vital Signs: Last Vital Signs Pulse 75 11/21/24 12:00 Resp 17 11/21/24 12:00 BP 136/72 11/21/24 12:00 Pulse Ox 95 11/21/24 12:00 Oxygen Delivery Method Room Air 11/21/24 12:00 BMI result Body Mass Index 30.4 Tobacco/Smoking Status: Tobacco use Status Tobacco use date assessed 11/21/24 11/21/24 12:03 Patient Tobacco Use Status Current everyday Tobacco 11/21/24 12:03 e-Cigarette/Vaping Use Never Used 11/21/24 12:03 PHQ-9: PHQ-9 Score PHQ-9: Total score 0 11/21/24 12:03 Depression Screening Interpretation: Negative Thrive Assessment: Date of Thrive Assessment Date Thrive assessed 11/21/24 11/21/24 12:03 Currently or been in a relationship where the following occur: No concerns reported Coding Level of Care Code Est Pt Level 4 (39721) Complex EM visit Add On G2211 Diagnoses Wheezing R06.2 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; E66.9 Hypertension, essential I10 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 Diabetes mellitus type: type 2 Non-insulin dependent type 2 diabetes mellitus E11.9 Lipid disorder E78.9 Tobacco abuse Z72.0 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 type: emphysema Emphysema type: panlobular Additional Codes MARILYNN-7 Assessment Billing - MARILYNN-7 Assessment Tool: MARILYNN-7 Assessment 09334 ([id number]) PHQ-9 - 56286 - PHQ-9 Billing: Yes ([id number]) Assessment & Plan Assessment & Plan (1) Wheezing: Code(s): R06.2 - Wheezing Category: Medical (2) Type 2 diabetes mellitus with obesity: Code(s): E11.69 - Type 2 diabetes mellitus with other specified complication; E66.9 - Obesity, unspecified Category: Medical (3) Hypertension, essential: Code(s): I10 - Essential (primary) hypertension Category: Medical (4) Diabetic nephropathy: 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 Category: Medical Qualifiers: Diabetes mellitus type: type 2 Qualified 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 (5) Non-insulin dependent type 2 diabetes mellitus: Code(s): E11.9 - Type 2 diabetes mellitus without complications Category: Medical (6) Lipid disorder: Code(s): E78.9 - Disorder of lipoprotein metabolism, unspecified Category: Medical (7) Tobacco abuse: Code(s): Z72.0 - Tobacco use Category: Medical (8) COPD (chronic obstructive pulmonary disease): Code(s): J44.9 - Chronic obstructive pulmonary disease, unspecified Category: Medical Qualifiers: COPD type: emphysema Emphysema type: panlobular Qualified Code(s): J43.1 - Panlobular emphysema Plan Follow-up appointment - The patient is a 68-year-old male presenting with routine monitoring and follow-up care for chronic conditions. - patient account specialist [facility]: Blood pressure consistently managed, with a recent reading of 136/72 mmHg. - Blood glucose levels to be checked during the visit; patient has a history of diabetes managed with medication. - COPD , patient experiences breathing issues exacerbated by weather and has not had pulmonary function tests. - On treatment for hyperlipidemia. - Reports regular physical exercise and reduced smoking. - Social support includes living with a brother receiving weekly nurse care. Problem List - Essential Hypertension - Chronic Obstructive Pulmonary Disease (COPD) - Diabetes Mellitus - Hyperlipidemi - tobacco abuse - wheezing Patient Instructions - Continue monitoring blood pressure and report any significant changes or symptoms. - Maintain current exercise regimen and efforts to reduce smoking. - Expect a call to schedule a pulmonary function test; follow through with scheduling promptly. - Return for routine blood tests before the next visit scheduled in May. - quit smoking Orders: Orders Complete Blood Count Auto Diff 5 Months E11.21 - Type 2 diabetes mellitus with diabetic nephropathy, E11.69 - Type 2 diabetes mellitus with other specified complication, E11.9 - Type 2 diabetes mellitus without complications, E66.9 - Obesity, unspecified, E78.9 - Disorder of lipoprotein metabolism, unspecified, I10 - Essential (primary) hypertension, Z72.0 - Tobacco use Lipid Panel 5 Months E11.21 - Type 2 diabetes mellitus with diabetic nephropathy, E11.69 - Type 2 diabetes mellitus with other specified complication, E11.9 - Type 2 diabetes mellitus without complications, E66.9 - Obesity, unspecified, E78.9 - Disorder of lipoprotein metabolism, unspecified, I10 - Essential (primary) hypertension, Z72.0 - Tobacco use Hemoglobin A1c 5 Months E11.21 - Type 2 diabetes mellitus with diabetic nephropathy, E11.69 - Type 2 diabetes mellitus with other specified comp lication, E11.9 - Type 2 diabetes mellitus without complications, E66.9 - Obesity, unspecified, E78.9 - Disorder of lipoprotein metabolism, unspecified, I10 - Essential (primary) hypertension, Z72.0 - Tobacco use Comprehensive [place]. Panel Fast 5 Months E11.21 - Type 2 diabetes mellitus with diabetic nephropathy, E11.69 - Type 2 diabetes mellitus with other specified complication, E11.9 - Type 2 diabetes mellitus without complications, E66.9 - Obesity, unspecified, E78.9 - Disorder of lipoprotein metabolism, unspecified, I10 - Essential (primary) hypertension, Z72.0 - Tobacco use PFT pulmonary function test Today J43.1 - Panlobular emphysema, R06.2 - Wheezing, Z72.0 - Tobacco use
== END 2024-11-21 12:31 | disposition home or self-care (01) ==
LOC: HO.HMCC 11:52
PROVIDERS: PCP Internal Medicine; Visit Provider Internal Medicine
DX: Z13.9 Encounter for screening, unspecified (principal)

== ENCOUNTER → 2024-11-21 11:52 | Outpatient (BNVA) | payer MEDICARE, SELFPAY | PROVIDERS: PCP Internal Medicine; Visit Provider Internal Medicine | DX: R06.2 Wheezing (principal); E11.69 Type 2 diabetes mellitus with other specified complication; E66.9 Obesity, unspecified; Z68.30 Body mass index [BMI] 30.0-30.9, adult; I10 Essential (primary) hypertension; E11.21 Type 2 diabetes mellitus with diabetic nephropathy; E78.9 Disorder of lipoprotein metabolism, unspecified; J43.1 Panlobular emphysema; Z72.0 Tobacco use; Z71.3 Dietary counseling and surveillance | CPT/HCPCS: 83036; 96127; 99212 ==

== ENCOUNTER 2025-01-02 10:42 | Outpatient (REF) | payer MEDICARE, SELFPAY ==
--- NOTE | 2025-01-02 10:44 | PFT_ITS ---
Flows: FEV1: 85 % of predicted at 2.32 L FVC: 95 % of predicted at 3.36 L FEV1/FVC: 69 % Bronchodilator response: Absent Volumes: Total lung capacity: 84 % of predicted at 4.91 L Residual volume: 82 % of predicted at 1.63 L Slow vital capacity: 85 % of predicted at 3.28 L Expiratory reserve volume: 55 % of predicted at 0.51 L Diffusion capacity: Normal Impression: Borderline obstructive ventilatory defect with no bronchodilator response. MTDD
[2025-01-02 11:24] VITALS: PULSE 62; O2SAT 96
== END 2025-01-02 10:43 | disposition home or self-care (01) ==
LOC: HO.RESP 10:42
PROVIDERS: PCP Internal Medicine; Visit Provider Internal Medicine
DX: R06.2 Wheezing (principal); J43.1 Panlobular emphysema; Z72.0 Tobacco use
CPT/HCPCS: 94010; 94640; 94727; 94729

== ENCOUNTER → 2025-01-02 10:44 | Outpatient (BNV) | payer MEDICARE, SELFPAY | PROVIDERS: PCP Internal Medicine; Visit Provider Internal Medicine Pulmonary Disease | DX: R06.2 Wheezing (principal) | CPT/HCPCS: 94060; 94727; 94729 ==

== ENCOUNTER 2025-01-04 05:48 | Emergency (ER) | payer MEDICARE, SELFPAY ==
[2025-01-04 05:49] VITALS: BP 185/77; PULSE 69; RESP 18; TEMP 36.3; O2SAT 98; BMI 29.7
[2025-01-04 06:20] VITALS: BP 180/75; PULSE 66; RESP 14; TEMP 36.4; O2SAT 96
--- NOTE | 2025-01-04 06:25 | HO.SKINPHOTO ---
Location: Right lower quadrant/pelvic area Category: Stage: Length: Width: Depth: cm Location: Category: Stage: Length: Width: Depth: cm Location: Category: Stage: Length: Width: Depth: cm Location: Category: Stage: Length: Width: Depth: cm Location: Category: Stage: Length: Width: Depth: cm Location: Category: Stage: Length: Width: Depth: cm
--- NOTE | 2025-01-04 07:57 | ED_ITS ---
HPI - General Adult General Chief complaint: Skin/Abscess/Foreign Body Stated complaint: tick bite Time Seen by Provider: 01/04/25 07:40 Source: patient Mode of arrival: ambulatory Limitations: no limitations History of Present Illness ED Provider: DR. Guajardo HPI narrative: 69-year-old male came in for evaluation after found a tick on his body, patient was out 3 days ago and found a tick on his body yesterday patient unsure when was a tick on him, was able to take most of the outside but because of redness at the site of the tick patient came in for further evaluation. Related Data Home Medications ?Medication ?Instructions ?Recorded ?Confirmed aspirin 81 mg tablet,delayed 81 mg PO DAILY 07/19/20 11/21/24 release (Adult Low Dose Aspirin) cholecalciferol (vitamin D3) PO DAILY 07/19/20 11/21/24 multivitamin [Daily Multi-Vitamin] PO 07/19/20 11/21/24 Previous Rx's ?Medication ?Instructions ?Recorded albuterol sulfate 90 mcg/actuation 1 inh inhalation QID PRN shortness 11/27/23 aerosol inhaler (Ventolin HFA) of breath or wheezing 30 days #6.7 grams atenolol 100 mg-chlorthalidone 25 1 tab PO DAILY #90 tabs 05/21/24 mg tablet glipizide 5 mg tablet 5 mg PO DAILY 90 days #90 tabs 10/20/24 lisinopril 30 mg tablet 30 mg PO DAILY 90 days #90 tabs 11/14/24 atorvastatin 20 mg tablet 20 mg PO DAILY #90 caps 12/29/24 amoxicillin 500 mg tablet 500 mg PO TID #30 tabs 01/04/25 Allergies Allergy/AdvReac Type Severity Reaction Status Date / Time shellfish derived Allergy Mild Hives Verified 01/04/25 05:54 Review of Systems Review of Systems: All other systems are reviewed and are negative Constitutional: Reports as per HPI and Reports no additional constitutional complaints Eyes: Reports as per HPI and Reports no additional eye complaints Reports system reviewed and no additional complaints, except as documented Cardiovascular: Reports as per HPI and Reports no additional cardiovascular complaints Respiratory: Reports as per HPI and Reports no additional respiratory complaints Gastrointestinal: Reports as per HPI and Reports no additional gastrointestinal complaints Genitourinary: Reports no additional female genitourinary complaints Musculoskeletal: Reports no additional musculoskeletal complaints Skin/Breast: Reports system reviewed and no additional complaints, except as docu Psychiatric: Reports no additional psychiatric complaints Endocrine: Reports no additional endocrine complaints Hematologic/Lymphatic: Reports no additional hematologic/lymphatic complaints Allergic/Immunologic: Reports no additional allergic/immunologic complaints Reports system reviewed and no additional complaints, except as documented and Reports Abnormal speech present [facility] Past Medical History Medical History Lipid disorder Hypertension, essential Surgical History History of dental surgery Family History Family History Father Diabetes mellitus Mother HTN (hypertension) Brother No problems noted. Brother No problems noted. Other Substance use disorder Social History Social History Housing: House Alcohol intake: former Patient Tobacco Use Status: Current everyday Tobacco user Cigarette Packs Per Day: 0.5 Cigarettes Per Day: 10 Smoked in Last 30 Days: Yes e-Cigarette/Vaping Use: Never Used Second Hand Smoke Exposure: No Use of substances other than those prescribed or required for medical reasons: No Advance Directives: No Do you have a plan to hurt others: No Plan service: Yes Current occupational status: retired Cognitive needs: No Hearing needs: No Vision needs: Yes Physical Exam ED Vital Signs: Vital Signs - 24 hr 01/04/25 05:49 01/04/25 06:20 Temperature 97.4 F 97.6 F Pulse Rate 69 66 Respiratory Rate 18 14 Blood Pressure 185/77 H 180/75 H Pulse Oximetry 98 96 Oxygen Delivery Method Room Air Room Air BMI result Body Mass Index 29.7 Vital signs have been reviewed and appear to be correct. Blood pressure elevated. Heart rate normal. Respiratory rate normal. Temperature normal. Oxygen saturation normal. Appearance: Alert. Oriented X3. No acute distress. Head: Normal external exam. Normocephalic. Atraumatic. No Quiñones signs noted. No raccoon eyes noted Eyes: PERRLA. EOMI. Conjunctiva and sclera normal. Eyelids normal. ENT: TM's Normal. Pharynx normal. Uvula midline. Moist mucous membranes. No trismus noted. No drooling noted. No muffled voice noted. Neck: Normal inspection. Neck supple. FROM. No adenopathy. Thyroid Normal. No meningeal signs. No neck mass noted. CVS: Normal heart rate and rhythm. Heart sound normal. No murmurs noted. Pulses normal throughout. Respiratory: No respiratory distress. Painless inspiration. Breath sounds normal. No wheezes/rales/rhonchi noted. Chest nontender. No accessory muscle usage noted or decreased air movement noted. Abdomen: Soft and nontender. Bowel sounds normal in all 4 quadrants. No distention noted. No organomegaly noted. No visible injury noted. Back: No CVA tenderness. Full range of motion noted. Skin: Located on right lower quadrant area, 2 cm in diameter maculopapular rash with slightly clearing center, black imbedded foreign body in the center of the lesion was removed. Extremities: No lower extremity edema. Extremities exhibit normal range of motion. Extremities nontender. Neuro: Oriented X 3. Cranial nerve exam: II-XII are grossly intact No motor deficit. No sensory deficit. Reflexes normal. Course Reevaluation(s) Reevaluation #1: Tick bite, +EM, will start on amoxicillin 500 mg TID for 10 days. Time: 08:03 Medical Decision Making Differential Diagnosis Differential Diagnoses: The differential diagnosis associated with the presentation includes (Cellulitis, erythema migraines, Lyme disease.) Admission/Observation Consideration of admission/observation: Escalation of care including admission/observation considered Discharge Plan Discharge Clinical Impression: Tick bite of abdominal wall Patient Disposition: Home, Self-Care Instructions: Tick Bite (ED) Prescriptions: New amoxicillin 500 mg tablet 500 mg PO TID Qty: 30 0RF No Action cholecalciferol (vitamin D3) PO DAILY multivitamin PO aspirin [Adult Low Dose Aspirin] 81 mg tablet,delayed release (DR/EC) 81 mg PO DAILY atenolol-chlorthalidone 100-25 mg tablet 1 tab PO DAILY Qty: 90 3RF glipizide 5 mg tablet 5 mg PO DAILY 90 Days Qty: 90 0RF atorvastatin 20 mg tablet 20 mg PO DAILY Qty: 90 0RF albuterol sulfate [Ventolin HFA] 90 mcg/actuation HFA aerosol inhaler 1 inh inhalation QID PRN (Reason: shortness of breath or wheezing) 30 Days Qty: 6.7 2RF lisinopril 30 mg tablet 30 mg PO DAILY 90 Days Qty: 90 4RF Referrals: Navya العلي MD [Primary Care Provider] - Print Language: Tamazight
[2025-01-04 08:19] VITALS: BP 164/77; PULSE 66; RESP 14; TEMP 36.4; O2SAT 97
[2025-01-04 08:20] VITALS: BP 164/77; PULSE 66; RESP 14; TEMP 36.4; O2SAT 97
== END 2025-01-04 08:20 | disposition home or self-care (01) ==
PROVIDERS: Emergency Provider Emergency Medicine; PCP Internal Medicine
DX: T14.8XXA Other injury of unspecified body region, initial encounter (principal); W57.XXXA Bitten or stung by nonvenomous insect and other nonvenomous arthropods, initial encounter; Y93.9 Activity, unspecified; Y92.9 Unspecified place or not applicable; Y99.9 Unspecified external cause status
CPT/HCPCS: 99283; 99284

== ENCOUNTER 2025-01-29 08:36 | Outpatient (AMB) | payer MEDICARE, SELFPAY ==
--- NOTE | 2025-01-29 08:57 | A.OFFPC_ITS ---
Intake Visit Reasons: Arterial study Allergies shellfish derived Allergy (Mild, Verified 01/29/25 08:59) Hives Medication List - Last Reconciled 01/29/25 by Navya العلي MD albuterol sulfate 90 mcg/actuation (Ventolin HFA) 1 inh inhalation QID PRN 30 days aspirin (Adult Low Dose Aspirin) 81 mg PO DAILY atenolol-chlorthalidone 100-25 mg 1 tab PO DAILY atorvastatin 20 mg PO DAILY cholecalciferol (vitamin D3) PO DAILY glipizide 5 mg PO DAILY 90 days lisinopril 30 mg PO DAILY 90 days multivitamin (Daily Multi-Vitamin) PO Tobacco use date assessed: 11/21/24 Dental Screening Dental Screen Date: 11/21/24 HPI Arterial study HPI Details History - The patient is a 69-year-old male pres enting with concerns regarding peripheral vascular disease. - Peripheral vascular disease was identi fied by the patient's insurance company?s screening test, revealing moderate blockage in one of the lower extremities. - No symptoms were initially reported by the patient related to the peripheral vascular disease, as the test was part of an annual screening. - The patient has a history of Chronic O bstructive Pulmonary Disease (COPD), which was confirmed by a pulmonary function test done on January 02, 2025, indicating a borderline obstructive ventilatory defect without bronchial dilator response. - There have been no recent exacerbation s in COPD symptoms, and the patient reports reduced use of inhalers. - The patient has a smoking history but reports a decrease in smoking frequency. - The patient has a history of Essential Hypertension and reported blood pressure readings that have shown some variation during self-monitoring. - Hyperlipidemia has been previously dru gnosed and managed. - The patient reports an event of a tick bite on the abdominal wall on January 04, leading to an emergency room visit for tick removal. - Hemoglobin A1c was reported as 6.9% in recent labs, improved from 7.4% in November. - Proteinuria related to diabetic kidney disease was discussed, with protein levels having reduced over time from previous higher values. Problem List - Peripheral Vascular Disease - Chronic Obstructive Pulmonary Disease (COPD) - Essential Hypertension - Hyperlipidemia - Smoking - Diabetic Kidney Disease Patient Instructions - Contact a cardiology office for a furt her evaluation of your heart's vessel status. 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 - Observe the site of the tick bite for any signs of redness or infection and consult a healthcare provider if needed. - Continue to monitor blood pressure reg ularly and maintain a healthy diet to manage hypertension. - Reduce smoking, and attempt cessation strategies such as chewing on alternatives like carrots. - Manage blood glucose levels and follow dietary advice to support kidney health. - Follow up with your nephrology doctor regarding diabetic kidney disease. Review of Systems - General: No fever no chills - Neurological: No headaches no dizziness - Ear nose throat: No sore throat no hearing difficulty no ear pain - Cardiovascular: No syncope, no chest pain, no palpitations - Gastrointestinal: No nausea vomiting or diarrhea - Endocrine: No polyuria polydipsia no heat intolerance - Genitourinary: No dysuria , no blood in urine [facility] Medical History Lipid disorder Hypertension, essential Surgical History History of dental surgery Family History Father Diabetes mellitus Mother HTN (hypertension) Brother No problems noted. Brother No problems noted. Other Substance use disorder Social History Housing: House Alcohol intake: former Patient Tobacco Use Status: Current everyday Tobacco user Cigarette Packs Per Day: 0.5 Cigarettes Per Day: 10 e-Cigarette/Vaping Use: Never Used Second Hand Smoke Exposure: No service: Yes Current occupational status: retired Cognitive needs: No Hearing needs: No Vision needs: Yes Questionnaire Thrive Questionnaire Date Thrive assessed: 11/21/24 AUDIT C Alcohol Use Questionnaire (AUDIT-C) 1. How often do you have a drink containing alcohol?: Never 3. How often do you have six or more drinks on one occasion?: Never Total Score: 0 Score Reviewed/Action Taken: Yes MARILYNN-7 AMB Questionnaire MARILYNN-7 Date MARILYNN - 7 assessed: 11/21/24 Source: Developed by Drs. Bobby Gutierrez, Alyse Zaragoza, Frank Small and colleagues, with an educational sera from [employer]. Physical exam (Primary Care) Tobacco/Smoking Status: Tobacco use Status Tobacco use date assessed 11/21/24 01/29/25 08:57 Patient Tobacco Use Status Current everyday Tobacco 01/29/25 08:57 e-Cigarette/Vaping Use Never Used 01/29/25 08:57 Thrive Assessment: Date of Thrive Assessment Date Thrive assessed 11/21/24 01/29/25 08:57 Telehealth Telehealth Telehealth Platform: [facility] Location of provider rendering services: practice address Location of patient: address on file Patient Identification confirmed using: Name, : Yes Telehealth method: video (attempted) Patient verbally consented to treatment: Yes Patient verbally consented to billing insurance company: Yes Patient informed of any privacy concerns related to visit: Yes Minutes spent on Phone/Video with Pt.: 30 Coding Level of Care Code Tele Est Pt Level 4 (98385) Diagnoses Vascular disease I99.9 Family history of coronary arteriosclerosis Z82.49 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; E66.9 Hypertension, essential I10 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 Diabetes mellitus type: type 2 Lipid disorder E78.9 Tobacco abuse Z72.0 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 type: emphysema Emphysema type: panlobular Assessment & Plan Assessment & Plan (1) Vascular disease: Code(s): I99.9 - Unspecified disorder of circulatory system Category: Medical (2) Family history of coronary arteriosclerosis: Code(s): Z82.49 - Family history of ischemic heart disease and other diseases of the circulatory system Category: Medical (3) Type 2 diabetes mellitus with obesity: Code(s): E11.69 - Type 2 diabetes mellitus with other specified complication; E66.9 - Obesity, unspecified Category: Medical (4) Hypertension, essential: Code(s): I10 - Essential (primary) hypertension Category: Medical (5) Diabetic nephropathy: 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 Category: Medical Qualifiers: Diabetes mellitus type: type 2 Qualified 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 (6) Lipid disorder: Code(s): E78.9 - Disorder of lipoprotein metabolism, unspecified Category: Medical (7) Tobacco abuse: Code(s): Z72.0 - Tobacco use Category: Medical (8) COPD (chronic obstructive pulmonary disease): Code(s): J44.9 - Chronic obstructive pulmonary disease, unspecified Category: Medical Qualifiers: COPD type: emphysema Emphysema type: panlobular Qualified Code(s): J43.1 - Panlobular emphysema Plan History - The patient is a 70-year-old female presenting with a review of recent thyroid function test and symptom of diarrhea. - The patient was informed that her recent thyroid test came back abnormal. - She has been experiencing challenges in adhering to the prescribed routine for levothyroxine, due to difficulty in taking her medication early in the morning on an empty stomach. - The patient reports occasional forgetfulness, potentially impacting medication effectiveness. - She experiences frequent episodes of diarrhea, and acknowledges inadequate hydration and electrolyte intake. - The patient mentioned receiving intravenous fluids recently due to dehydration from diarrhea episodes, resulting in improvement of her condition. thru Oncology she is under treatment for breast cancer Problem List - Abnormal Thyroid Function - Diarrhea Patient Instructions - Continue taking levothyroxine every day, early in the morning, on an empty stomach. - Repeat the blood test in six weeks to reassess thyroid function. - Ensure adequate hydration, especially during instances of diarrhea. Drink beverages containing electrolytes, such as Gatorade, regularly. - Continue taking iron as prescribed. Orders: Referrals Cardiology Referral I99.9 - Unspecified disorder of circulatory system, Z82.49 - Family history of ischemic heart disease and other diseases of the circulatory system
== END 2025-01-29 10:23 | disposition home or self-care (01) ==
LOC: HO.HMCC 08:36
PROVIDERS: PCP Internal Medicine; Visit Provider Internal Medicine
DX: E11.69 Type 2 diabetes mellitus with other specified complication (principal); E11.21 Type 2 diabetes mellitus with diabetic nephropathy; J43.1 Panlobular emphysema; E66.9 Obesity, unspecified; I99.9 Unspecified disorder of circulatory system; Z82.49 Family history of ischemic heart disease and other diseases of the circulatory system; I10 Essential (primary) hypertension; E78.9 Disorder of lipoprotein metabolism, unspecified; Z72.0 Tobacco use

== ENCOUNTER → 2025-01-29 08:36 | Outpatient (BNVA) | payer MEDICARE, SELFPAY | PROVIDERS: PCP Internal Medicine; Visit Provider Internal Medicine | DX: Z13.89 Encounter for screening for other disorder (principal) ==

== ENCOUNTER 2025-03-03 09:17 | Outpatient (AMB) | payer MEDICARE, SELFPAY ==
--- NOTE | 2025-03-03 09:23 | A.OFFVIS_ITS ---
Vital Signs 03/03/25 09:26 Height 5 ft 4 in Weight 172 lb BMI 29.5 Intake Visit Reasons: RESIDENT CARE MANAGER/Neuro referral for Left LE PAD s/p Art US? Intake Note: RESIDENT CARE MANAGER for VIOLET w/ at home testing. Pt states that he doesn't have issues but does get cramping in caleves, states right more than Left LE and mostly at night time, not with ambulation. Hardwood Finisher Required: No Accompanied by: Self / Same As Patient Allergies shellfish derived Allergy (Mild, Verified 03/03/25 09:28) Hives HPI HPI RESIDENT CARE MANAGER/Neuro referral for Left LE PAD s/p Art US?: Details: The patient is a 69-year-old male presenting with peripheral vascular disease. He underwent an at-home insurance test by [employer], which demonstrated an ankle-brachial index (VIOLET) of 0.81 on the right and 0.39 on the left, prompting a referral for vascular evaluation. The patient has a history of diabetes mellitus, managed with oral medication, specifically Glipizide, which he has been taking for approximately one and a half to two years. He reports no use of insulin and maintains an active lifestyle, walking 10,000 steps daily and engaging in mall walking three to four times a week. The patient has a history of tobacco use, smoking approximately half a pack per day. He acknowledges the need to monitor his health due to his smoking and diabetic status, and he expresses a desire to lose weight, although he has not engaged in any specific weight loss programs. He now presents to us for vascular evaluation [facility] Medical History Lipid disorder Hypertension, essential Surgical History History of dental surgery Family History Father Diabetes mellitus Mother HTN (hypertension) Brother No problems noted. Brother No problems noted. Other Substance use disorder Social History Housing: House Alcohol intake: former Patient Tobacco Use Status: Current everyday Tobacco user Cigarette Packs Per Day: 0.5 Cigarettes Per Day: 10 e-Cigarette/Vaping Use: Never Used Second Hand Smoke Exposure: No service: Yes Current occupational status: retired Cognitive needs: No Hearing needs: No Vision needs: Yes Review of Systems Const All systems reviewed & are unremarkable except as noted in HPI and below Reports no additional complaints ENT Reports Normal hearing present Card Denies chest pain, Denies chest pain at rest, Denies chest pain with activity and Denies pedal edema Resp Denies cough GI Denies abdominal pain Musc Denies abnormal gait, Denies muscle cramps and Denies radiating pain into limb Skin/Breast Denies skin ulcer and Denies wounds Neuro Reports Normal hearing present and Denies abnormal gait Psych Reports no additional complaints Physical Exam Vital Signs: BMI result Body Mass Index 29.5 Const General: cooperative, healthy appearing and comfortable Orientation/consciousness: oriented to person, oriented to place and oriented to time HEENT Head: Yes normal to inspection Neck Neck: Yes normal visual inspection Carotids: no bruits Chest Chest palpation & inspection: normal inspection of the chest Resp Effort & Inspection: normal respiratory effort and able to speak in complete sentences Auscultation: clear to auscultation bilaterally, no crackles, no rales, no rhonchi and no wheezes Cardio Other: Bilateral palpable posterior tibial pulses Rate: regular rate Rhythm: regular rhythm Heart sounds: S1 normal heart sound present and S2 normal heart sound present Bruits: no carotid bruits Peripheral pulses: Peripheral pulses 2+ throughout GI Inspection: Yes normal to inspection Skin Wounds: no wounds Hair: normal Neuro General: oriented to person, oriented to place and oriented to time Cranial nerves: Yes CN's II-XII intact bilaterally and Yes Normal hearing present Cognition (Neuro): normal cognition Motor exam (neuro): 5/5 motor strength present throughout Extrem Other: venous exam: No significant superficial varicosities or spider telangiectasias, minimal edema General: No clubbing, No cyanosis and No edema Psych Appearance: grossly normal Mental Status: mental status grossly normal Speech and movement: Normal speech and movement present Results Reviewed Results Reviewed: Written report from [employer] flow test dated 01/16/2025 demonstrates VIOLET on the right of 0.81 and on the left of 0.39. Written report and images were reviewed. Assessment & Plan Assessment & Plan (1) PAD (peripheral artery disease): Code(s): I73.9 - Peripheral vascular disease, unspecified Category: Medical Plan: I discussed with the patient the results of his [employer] test and explained that the VIOLET results might not accurately reflect his current circulation status, given his ability to walk extensively without symptoms. We talked about the importance of maintaining his current level of physical activity and the benefits of smoking cessation. I recommended an annual ultrasound to monitor his vascular health and should there be any issues happy to see him back sooner. Thank you for allowing us to assist in his care. If there are any questions or concerns please do not hesitate to contact us. Plan Patient was informed and verbally consented to the use of an ambient scribe for clinic note documentation during this visit. Orders: Orders US arterial duplex LE BI 1 Year I73.9 - Peripheral vascular disease, unspecified Patient Instructions: - Continue regular physical activity, aiming for at least 10,000 steps daily. - Schedule an annual ultrasound to monitor vascular health. - Consider smoking cessation to improve vascular health. - Focus on weight management to enhance overall health. Coding Level of Care Code New Pt Level 4 (68646) Complex EM visit Add On G2211 Diagnoses PAD (peripheral artery disease) I73.9
[2025-03-03 09:26] VITALS: BMI 29.5
--- OUTSIDE RECORDS SUMMARY | 2025-03-03 09:56 | XMS_ITS | Patient Health Record ---
Author Organization [facility] Address [address] [place] [id number] Care Team Providers Care Middle [employer] Science Teacher Name Role Phone Severiano DOVE, [facility] Primary Care Provider Bobby Us [phone] Reason For Referral No Information Medications Medication SIG (Take, Route, Frequency, Duration) Notes Start Date End Date Status Aspirin Adult Low Dose 81 MG Orally Active hydroCHLOROthiazide 25 MG Orally Once a day Active Atorvastatin Calcium 20 MG Orally Active Problems Problem Type SNOMED Code ICD Code Onset Dates Problem Status W/U Status Risk Notes Problem [id number] Encounter for screening for malignant neoplasm of colon (Z12.11) Active confirmed Problem Screening for malignant neoplasm of rectum (935623502) Encounter for screening for malignant neoplasm of rectum (Z12.12) Active confirmed Problem 439425243 Preprocedural examination (Z01.818) Active confirmed Problem 788655794 Long-term use of aspirin therapy (Z79.82) Active confirmed Plan Of Treatment Future Test Test Name Order Date COLONOSCOPY 12/27/2016 Insurance Providers Payer Name Payer Address Payer Phone Subscriber Number Group Number Insured Name Patient Relationship to Insured Coverage Start Date Coverage End Date [facility] [address] [place] [address] [id number] DEMETRI MARKS Self - patient is the insured Medical (General) History Medical History History ICD Code Hypertension Denies MS,DM,CVA,Lung disease,renal dise ase Hyperlipidemia
== END 2025-03-03 09:52 | disposition home or self-care (01) ==
LOC: HO.HVS 09:18
PROVIDERS: PCP Internal Medicine; Visit Provider Surgery Vascular Surgery
DX: I73.9 Peripheral vascular disease, unspecified (principal)
CPT/HCPCS: 99204; G2211

== ENCOUNTER → 2025-03-03 09:17 | Outpatient (BNVA) | payer MEDICARE, SELFPAY | PROVIDERS: PCP Internal Medicine; Visit Provider Surgery Vascular Surgery | DX: I73.9 Peripheral vascular disease, unspecified (principal) | CPT/HCPCS: 99202 ==

== ENCOUNTER 2025-05-13 08:40 | Outpatient (REF) | payer MEDICARE, SELFPAY ==
--- OUTSIDE RECORDS SUMMARY | 2025-05-13 09:07 | XMS_ITS | Patient Health Record ---
Author Organization [facility] Address [address] [place] [id number] Care Team Providers Care Extermination Supervisor Name Role Phone Severiano DOVE, [facility] Primary Care Provider Bobby Us [phone] Reason For Referral No Information Medications Medication SIG (Take, Route, Frequency, Duration) Notes Start Date End Date Status Aspirin Adult Low Dose 81 MG Orally Active hydroCHLOROthiazide 25 MG Orally Once a day Active Atorvastatin Calcium 20 MG Orally Active Problems Problem Type SNOMED Code ICD Code Onset Dates Problem Status W/U Status Risk Notes Problem [id number] Encounter for screening for malignant neoplasm of colon (Z12.11) Active confirmed Problem Screening for malignant neoplasm of rectum (170478277) Encounter for screening for malignant neoplasm of rectum (Z12.12) Active confirmed Problem 819929927 Preprocedural examination (Z01.818) Active confirmed Problem 343819083 Long-term use of aspirin therapy (Z79.82) Active confirmed Plan Of Treatment Future Test Test Name Order Date COLONOSCOPY 12/27/2016 Insurance Providers Payer Name Payer Address Payer Phone Subscriber Number Group Number Insured Name Patient Relationship to Insured Coverage Start Date Coverage End Date [facility] [address] [place] [address] [id number] DEMETRI MARKS Self - patient is the insured Medical (General) History Medical History History ICD Code Hypertension Denies AL,DM,CVA,Lung disease,renal dise ase Hyperlipidemia
[2025-05-13 10:09] LABS: MANUAL DIFF FLAG NO
[2025-05-13 10:17] LABS: Hematocrit 46.5 % (42.0-52.0); Hemoglobin 16.0 g/dl (14.0-18.0); Imm Gran Abs Auto 0.04 X10*3/uL (0.00-0.03); Imm Gran Pct Auto 0.4 % (0.0-0.4); Lymphocytes Absolute Auto 2.9 X10*3/uL (1.2-4.9); Mean Corpuscular HGB Conc 34.4 g/dl (31.0-36.0); Mean Corpuscular Hemoglobin 31.6 pg (27.0-33.0); Mean Corpuscular Volume 91.9 fL (80.0-98.0); NRBC Abs Auto 0.000 X10*3/uL (0.0-0.012); NRBC Pct Auto 0.0 /100WBC (0.0-0.2); Platelet Count 207 X10*3/uL (160-400); Red Blood Count 5.06 X10*6/uL (4.60-5.80); White Blood Count 10.0 X10*3/uL (4.8-10.8)
[2025-05-13 10:19] LABS: Hemoglobin A1C 238.3306 umol/L; Total Hemoglobin (HGBA1C) 4124.4241 umol/L
[2025-05-13 10:57] LABS: Alanine Aminotransferase 55 U/L (0-40); Albumin Level 4.9 g/dL (3.5-5.0); Alkaline Phosphatase 66 U/L (39-117); Anion Gap 12 (12-20); Aspartate Amino Transferase 33 U/L (5-37); Blood Urea Nitrogen 27 mg/dL (9-16); Calcium 9.5 mg/dL (8.4-10.2); Carbon Dioxide 26 mmol/L (22-29); Chloride 104 mmol/L (96-108); Cholesterol 195 mg/dL (<200); Estimated Glomerular Filt Rate > 60; HDL Cholesterol 41 mg/dL (>40); Potassium 4.1 mmol/L (3.3-5.1); Sodium 138 mmol/L (135-145); Total Protein 7.5 g/dL (6.5-8.0); Triglycerides 148 mg/dL (<150)
== END 2025-05-13 08:41 | disposition home or self-care (01) ==
LOC: HO.HMGCLDS 08:40
PROVIDERS: PCP Internal Medicine; Visit Provider Internal Medicine
DX: E11.21 Type 2 diabetes mellitus with diabetic nephropathy (principal); E11.69 Type 2 diabetes mellitus with other specified complication; E66.9 Obesity, unspecified; E78.9 Disorder of lipoprotein metabolism, unspecified; I10 Essential (primary) hypertension; Z72.0 Tobacco use
CPT/HCPCS: 36415; 80053; 80061; 83036; 85025

== ENCOUNTER 2025-05-15 12:14 | Outpatient (AMB) | payer MEDICARE, SELFPAY ==
[2025-05-15 12:17] VITALS: BP 138/80; PULSE 67; O2SAT 98; BMI 29.9
--- NOTE | 2025-05-15 12:17 | A.OFFPC_ITS ---
Vital Signs 05/15/25 12:17 Height 5 ft 4 in Weight 174 lb BMI 29.9 BP 138/80 Blood Pressure Location Lt brachial Position Sitting Pulse 67 Pulse Source Pulse Oximeter Pulse Oximetry (%) 98 Oxygen Delivery Method Room Air Intake Visit Reasons: PE Allergies shellfish derived Allergy (Mild, Verified 05/15/25 12:18) Hives Medication List - Last Reconciled 05/15/25 by Navya العلي MD albuterol sulfate 90 mcg/actuation (Ventolin HFA) 1 inh inhalation QID PRN 30 days aspirin (Adult Low Dose Aspirin) 81 mg PO DAILY atenolol-chlorthalidone 100-25 mg 1 tab PO DAILY atorvastatin 20 mg PO DAILY cholecalciferol (vitamin D3) PO DAILY glipizide 5 mg PO DAILY 90 days lisinopril 30 mg PO DAILY 90 days multivitamin (Daily Multi-Vitamin) PO Tobacco use date assessed: 11/21/24 Fall risk assessment: No Falls in past year Last assessed Fall Risk: 05/15/25 Dental Screening Dental Screen Date: 11/21/24 HPI PE HPI Details PE The patient is a 69-year-old male presenting for a follow-up on chronic conditions. Essential Hypertension: - Blood pressure reading from home was 1 38/80 mm Hg, slightly elevated. - Stated the elevated reading could be d ue to stress about dental issues. Chronic Obstructive Pulmonary Disease (COPD): - History of smoking. - Pulmonary function test from the previ ous year indicated borderline obstructive ventilatory defect. - Experiencing wheezing on both sides of the lungs. - Using albuterol inhaler, but reports m inimal efficacy. - Continues to smoke despite awareness o f the impact on respiratory health. Type 2 Diabetes Mellitus: - Maintained on glipizide. - Hemoglobin A1c is currently 7.4%. Constipation: - Recent development of constipation; hi storically had looser stools. - Interested in using a stool softener, such as Colace. Dental Issues: - Noted a problem with teeth; intended t o contact a dentist. - Mentioned only having 10 teeth left. Medical History: - Essential Hypertension - Chronic Obstructive Pulmonary Disease (COPD) - Type 2 Diabetes Mellitus Social History: - Tobacco use: Active smoker, difficulty quitting despite multiple attempts. - Exercise: Regular walking; enjoys shana g to [email or web address]. - Not a fan of telephone communication. Family History: - Father's history of diabetes on insuli n therapy. Health Maintenance - Due for a colonoscopy in [address] Akil finley. Medications - Atenolol for hypertension - Chlorthalidone for hypertension - Atorvastatin for hyperlipidemia - Glipizide for Type 2 Diabetes Mellitus - Lisinopril for hypertension - Albuterol inhaler for COPD - Multivitamins for nutritional suppleme ntation Diagnostic results - Labs: Hemoglobin A1c 7.4%, LDL 125 mg/ dL. - Pulmonary Function Test: Borderline ob structive ventilatory defect noted. Patient Instructions - Try a different inhaler as recommended for COPD management. Spiriva - Consider using a stool softener to man age constipation. - Follow up with a dentist for dental is sues. - child support specialist prescribed medication at the [facility]. - Contact pharmacy if refills or other m edication issues arise. - stop smoking, let me know if you need any help Review of Systems - General: No fever no chills - Neurological: No headaches no dizzin ess - Ear nose throat: No sore throat no hearing difficulty no ear pain - Cardiovascular: No syncope, no chest pain, no palpitations - Gastrointestinal: No nausea vomiting or diarrhea - Endocrine: No polyuria polydipsia no heat intolerance - Genitourinary: No dysuria - Skin: No new complaints Physical Exam General: Cooperative, healthy appearing, comfortable, no acute distress Orientation: Patient oriented x3 Limitations: none Head: Normal to inspection Ears: Within normal limit visually Nose: Normal external nose present Face and sinus: Normal facial exam Eyes: Appearance normal, extraocular movement intact pupils reactive Neck: Normal visual inspection and supple Respiratory: Wheezing both sides of lungs, normal respiratory effort and able to speak in complete sentences. Cardiovascular: S1 and S2 RRR GI: Normal to inspection. Soft to palpation and nontender Skin: Turgor normal, no acute findings Neuro: Patient oriented x3, motor sensory intact, balance intact, tandem pass Extremities: Normal to inspection, no swelling PFSH Medical History Lipid disorder Hypertension, essential Surgical History History of dental surgery Family History Father Diabetes mellitus Mother HTN (hypertension) Brother No problems noted. Brother No problems noted. Other Substance use disorder Social History Housing: House Alcohol intake: former Patient Tobacco Use Status: Current everyday Tobacco user Cigarette Packs Per Day: 0.5 Cigarettes Per Day: 10 e-Cigarette/Vaping Use: Never Used Second Hand Smoke Exposure: No service: Yes Current occupational status: retired Cognitive needs: No Hearing needs: No Vision needs: Yes Questionnaire Thrive Questionnaire Date Thrive assessed: 11/14/24 I am a: Patient What is your living situation today?: I have a steady place to live Within the past 12 months, did the food you bought not last and you didn't have the money to get more?: Never true Within the past 12 months, did you worry whether your food would run out before you got money to buy more?: Never true Do you have trouble paying for medicines?: No Do you have trouble getting transportation to medical appointments?: No Do you have trouble paying your heating and electricity bill?: No Do you have trouble taking care of your child, family member or friend?: No Do you have trouble with day-to-day activities such as bathing, preparing meals, shopping, managing finances, etc.?: No Are you currently unemployed and looking for a job?: No Are you interested in more education?: No Please select the resources that you would like help with: None Currently or been in a relationship where the following occur: No concerns reported THRIVE Score: 0 MARILYNN-7 AMB Questionnaire MARILYNN-7 Date MARILYNN - 7 assessed: 11/21/24 Source: Developed by Drs. Bobby Gutierrez, Alyse Zaragoza, Frank Small and colleagues, with an educational sera from [employer]. Physical exam (Primary Care) Vital Signs: Last Vital Signs Pulse 67 05/15/25 12:17 BP 138/80 05/15/25 12:17 Pulse Ox 98 05/15/25 12:17 Oxygen Delivery Method Room Air 05/15/25 12:17 BMI result Body Mass Index 29.9 Tobacco/Smoking Status: Tobacco use Status Tobacco use date assessed 11/21/24 05/15/25 12:22 Patient Tobacco Use Status Current everyday Tobacco 05/15/25 12:22 e-Cigarette/Vaping Use Never Used 05/15/25 12:22 Are you ready to quit: No Tobacco cessation counseling provided: Yes Relapse Prevention: discussed the importance of a supportive environment and discussed dietary, exercise and/or lifestyle changes CPT code: 78188 - 4-10 Minutes Thrive Assessment: Date of Thrive Assessment Date Thrive assessed 11/14/24 05/15/25 12:22 Currently or been in a relationship where the following occur: No concerns reported Coding Level of Care Code Est Pt Level 4 (72580) Est Pt Prev Care >65y(37363) Diagnoses Encounter for general adult medical examination with abnormal findings Z00.01 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 type: emphysema Emphysema type: panlobular Wheezing R06.2 Microalbuminuria R80.9 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 Diabetes mellitus type: type 2 Non-insulin dependent type 2 diabetes mellitus E11.9 Lipid disorder E78.9 Hypertension, essential I10 Additional Codes Vital Signs *Quality* - CPT code: 06019 - 4-10 Minutes ([id number]) Assessment & Plan Assessment & Plan (1) Encounter for general adult medical examination with abnormal findings: Code(s): Z00.01 - Encounter for general adult medical examination with abnormal findings Category: Medical (2) COPD (chronic obstructive pulmonary disease): Code(s): J44.9 - Chronic obstructive pulmonary disease, unspecified Category: Medical Qualifiers: COPD type: emphysema Emphysema type: panlobular Qualified Code(s): J43.1 - Panlobular emphysema (3) Wheezing: Code(s): R06.2 - Wheezing Category: Medical (4) Microalbuminuria: Code(s): R80.9 - Proteinuria, unspecified Category: Medical (5) Diabetic nephropathy: 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 Category: Medical Qualifiers: Diabetes mellitus type: type 2 Qualified 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 (6) Non-insulin dependent type 2 diabetes mellitus: Code(s): E11.9 - Type 2 diabetes mellitus without complications Category: Medical (7) Lipid disorder: Code(s): E78.9 - Disorder of lipoprotein metabolism, unspecified Category: Medical (8) Hypertension, essential: Code(s): I10 - Essential (primary) hypertension Category: Medical Plan PE The patient is a 69-year-old male presenting for a follow-up on chronic conditions. Essential Hypertension: - Blood pressure reading from home was 138/80 mm Hg, slightly elevated. - Stated the elevated reading could be due to stress about dental issues. Chronic Obstructive Pulmonary Disease (COPD): - History of smoking. - Pulmonary function test from the previous year indicated borderline obstructive ventilatory defect. - Experiencing wheezing on both sides of the lungs. - Using albuterol inhaler, but reports minimal efficacy. - Continues to smoke despite awareness of the impact on respiratory health. Type 2 Diabetes Mellitus: - Maintained on glipizide. - Hemoglobin A1c is currently 7.4%. Constipation: - Recent development of constipation; historically had looser stools. - Interested in using a stool softener, such as Colace. Dental Issues: - Noted a problem with teeth; intended to contact a dentist. - Mentioned only having 10 teeth left. Medical History: - Essential Hypertension - Chronic Obstructive Pulmonary Disease (COPD) - Type 2 Diabetes Mellitus Social History: - Tobacco use: Active smoker, difficulty quitting despite multiple attempts. - Exercise: Regular walking; enjoys going to [email or web address]. - Not a fan of telephone communication. Family History: - Father's history of diabetes on insulin therapy. Health Maintenance - Due for a colonoscopy in [address] Potter. Medications - Atenolol for hypertension - Chlorthalidone for hypertension - Atorvastatin for hyperlipidemia - Glipizide for Type 2 Diabetes Mellitus - Lisinopril for hypertension - Albuterol inhaler for COPD - Multivitamins for nutritional supplementation Diagnostic results - Labs: Hemoglobin A1c 7.4%, LDL 125 mg/dL. - Pulmonary Function Test: Borderline obstructive ventilatory defect noted. Patient Instructions - Try a different inhaler as recommended for COPD management. Spiriva - Consider using a stool softener to manage constipation. - Follow up with a dentist for dental issues. - child support specialist prescribed medication at the pharmacy. - Contact pharmacy if refills or other medication issues arise. - stop smoking, let me know if you need any help Medications: New tiotropium bromide (Spiriva with HandiHaler) puncture 1 cap using device; one dose = 2 inhalations 1 cap inhalation DAILY 1 units 0RF 30 days
--- OUTSIDE RECORDS SUMMARY | 2025-05-15 12:46 | XMS_ITS | Patient Health Record ---
Author Organization [facility] Address [address] [place] [id number] Care Team Providers Care Field Service Coordinator Name Role Phone Severiano DOVE, [facility] Provider Bobby Us [phone] Reason For Referral No Information Medications Medication SIG (Take, Route, Frequency, Duration) Notes Start Date End Date Status Aspirin Adult Low Dose 81 MG Orally Active hydroCHLOROthiazide 25 MG Orally Once a day Active Atorvastatin Calcium 20 MG Orally Active Problems Problem Type SNOMED Code ICD Code Onset Dates Problem Status W/U Status Risk Notes Problem [id number] Encounter for screening for malignant neoplasm of colon (Z12.11) Active confirmed Problem Screening for malignant neoplasm of rectum (020199601) Encounter for screening for malignant neoplasm of rectum (Z12.12) Active confirmed Problem [id number] Preprocedural examination (Z01.818) Active confirmed Problem [id number] Long-term use of aspirin therapy (Z79.82) Active confirmed Plan Of Treatment Future Test Test Name Order Date COLONOSCOPY 12/27/2016 Insurance Providers Payer Name Payer Address Payer Phone Subscriber Number Group Number Insured Name Patient Relationship to Insured Coverage Start Date Coverage End Date [facility] [address] [place] [address] [id number] DEMETRI MARKS Self - patient is the insured Medical (General) History Medical History History ICD Code Hypertension Denies CT,DM,CVA,Lung disease,renal dise ase Hyperlipidemia
== END 2025-05-15 17:48 | disposition home or self-care (01) ==
LOC: HO.HMCC 12:14
PROVIDERS: PCP Internal Medicine; Visit Provider Internal Medicine
DX: Z00.01 Encounter for general adult medical examination with abnormal findings (principal); J43.1 Panlobular emphysema; E11.21 Type 2 diabetes mellitus with diabetic nephropathy; R06.2 Wheezing; R80.9 Proteinuria, unspecified; E78.9 Disorder of lipoprotein metabolism, unspecified; I10 Essential (primary) hypertension

== ENCOUNTER → 2025-05-15 12:14 | Outpatient (BNVA) | payer MEDICARE, SELFPAY | PROVIDERS: PCP Internal Medicine; Visit Provider Internal Medicine | DX: Z00.01 Encounter for general adult medical examination with abnormal findings (principal); E11.21 Type 2 diabetes mellitus with diabetic nephropathy; J43.1 Panlobular emphysema; R06.2 Wheezing; I10 Essential (primary) hypertension; J44.9 Chronic obstructive pulmonary disease, unspecified; K59.00 Constipation, unspecified; R80.9 Proteinuria, unspecified; E78.9 Disorder of lipoprotein metabolism, unspecified | CPT/HCPCS: 99212; 99397 ==